=== PATIENT | female | born 1990 | race Caucasian/White ===

== ENCOUNTER 2017-06-07 19:28 | Emergency (ER) | payer SELFPAY ==
[~2017-06-07 19:28] MED LIST: ALLERGY MEDICINE
--- OUTSIDE RECORDS SUMMARY | 2017-06-07 19:36 | XMS REPORT ---
Author Author YAZAN ARCEO [facility] eClinicalWorks Address Unknown Phone Unavailable Care Team Providers Care Computer Aided Design Operator Name Role Phone YAZAN ARCEO Unavailable Allergies No Known Allergies Problems Problem Type Condition Code Onset Dates Condition Status Problem Referred otogenic pain, unspecified laterality H92.09 Active Problem Obesity, unspecified obesity severity, unspecified obesity type E66.9 Active Problem Counseling for control, oral contraceptives Z30.9 Active Problem Absence of menstruation N91.2 Active Medications Medication Code System Code Instructions Start Date End Date Status Dosage Diflucan [facility] [address]-97 150 MG Orally Once a day 2014 1 tablet Results No Known Results Summary Purpose eClinicalWorks Submission
--- OUTSIDE RECORDS SUMMARY | 2017-06-07 19:36 | XMS REPORT ---
Author Author BRANDON SANTILLAN [facility] eClinicalWorks Address Unknown Phone Unavailable Care Team Providers Care Net Front End Developer Name Role Phone BRANDON SANTILLAN CP Unavailable Allergies, Adverse Reactions, Alerts Substance Reaction Event Type N.K.D.A. Info Not Available Non Drug Allergy Problems Problem Type Condition Code Onset Dates Condition Status Problem Referred otogenic pain, unspecified laterality H92.09 Active Problem Obesity, unspecified obesity severity, unspecified obesity type E66.9 Active Problem Counseling for control, oral contraceptives Z30.9 Active Problem Absence of menstruation N91.2 Active Assessment Acute cystitis without hematuria N30.00 Active Medications Medication Code System Code Instructions Start Date End Date Status Dosage Pyridium [facility] [address]-35 200 MG Orally Three times a day 1 tablet after meals Bactrim DS [facility] [address]-39 800-160 MG Orally Twice a day 1 tablet Procedures Procedure Coding System Code Date Office Visit, Est Pt., Level 3 CPT-4 34252 August 29, 2015 Vital Signs Date/Time: August 29, 2015 Cardiac Monitoring Heart Rate 90 bpm Weight 183.9 lbs Height 62 in Blood Pressure Diastolic 76 mmHg Blood Pressure Systolic 108 mmHg Results No Known Results Summary Purpose eClinicalWorks Submission
--- OUTSIDE RECORDS SUMMARY | 2017-06-07 19:36 | XMS REPORT ---
Author Author LEROY CORRALES Organization [facility] Address [address] [place] [address] Care Team Providers Care Assistant City Attorney Name Role Phone LEROY CORRALES Unavailable PROBLEMS Type Condition ICD9-CM Code SUC26-FY Code Onset Dates Condition Status SNOMED Code Problem Obesity (BMI 30.0-34.9) E66.9 Active 353614756356510 Problem Amenorrhea N91.2 Active 22442736 ALLERGIES No Known Allergies SOCIAL HISTORY Never Assessed PLAN OF CARE Activity Details Follow Up prn Reason: VITAL SIGNS Height 62 in 2016-06-09 Weight 184.2 lbs 2016-06-09 Temperature 98.3 degrees Fahrenheit 2016-06-09 Heart Rate 80 bpm 2016-06-09 Respiratory Rate 20 2016-06-09 BMI 33.69 kg/m2 2016-06-09 Blood pressure systolic 116 mmHg 2016-06-09 Blood pressure diastolic 68 mmHg 2016-06-09 MEDICATIONS Medication Instructions Dosage Frequency Start Date End Date Duration Status Azithromycin 250 MG Orally Once a day 2 tablets on the first day, then 1 tablet daily for 4 days 24h June, June, 5 day(s) Active Depo-Provera 150 MG/ML Intramuscular every 3 months 1 ml Mar, 1 dose Active RESULTS Name Result Date Reference Range STREP A (IN HOUSE) 2016-06-09 STREP A positive Control + Lot # [id number] Exp date nov 26 PROCEDURES Procedure Date Ordered Result Body Site STREP A ASSAY W/OPTIC June 09, 2016 IMMUNIZATIONS No Known Immunizations MEDICAL (GENERAL) HISTORY Type Description Date Medical History Intestinal infection due to other organism Hospitalization History pneumonia as a child
--- OUTSIDE RECORDS SUMMARY | 2017-06-07 19:36 | XMS REPORT ---
Author Author MOTLEYAMIE VeraELE [facility] Address [address] [place] [address] Care Team Providers Care Order Puller Name Role Phone CRISTI MOTLEY Unavailable PROBLEMS Type Condition ICD9-CM Code CHE82-ZK Code Onset Dates Condition Status SNOMED Code Problem Vitamin D insufficiency E55.9 Active 741213755 Problem Obesity (BMI 30.0-34.9) E66.9 Active 863955736919102 Problem Amenorrhea N91.2 Active 33791921 Problem Seasonal allergic rhinitis, unspecified trigger J30.2 Active 644979539 Problem Moderate episode of recurrent major depressive disorder F33.1 Active 643746791 Problem Burning sensation of skin R20.8 Active 06136675 Problem Irregular menstrual cycle N92.6 Active 24358153 Problem Major depressive disorder, single episode, unspecified F32.9 Active 58271439 Problem Acute stress reaction F43.0 Active 21175757 ALLERGIES No Information ENCOUNTERS Encounter Location Date Diagnosis [place] [id number] [address] June, [place] [address] [address] May, Sore throat J02.9 and Seasonal allergic rhinitis, unspecified trigger J30.2 [facility] [address] [place] [id number] [place] [address] Mar, [facility] [address] [address] Mar, [facility] [address] [address] Mar, Sore throat J02.9 and Viral pharyngitis J02.9 [place] [address] [place] [address] Mar, 2017 Moderate episode of recurrent major depressive disorder F33.1 ; Other fatigue R53.83 and Oral contraception initial prescription Z30.011 [facility] [place] [address] [place] [id number] [place] [address] Jan, Acute non-recurrent frontal sinusitis J01.10 [place] [address] [place] [id number] [place] [address] Jan, Dysuria R30.0 ; Burning sensation of skin R20.8 and Acute stress reaction F43.0 [facility] [place] [address] [address] Jan, Other viral agents as the cause of diseases classified elsewhere B97.89 and Acute upper respiratory infection, unspecified J06.9 [place] [address] [place] [id number] [place] [address] Jan, Dysuria R30.0 and Acute cystitis with hematuria N30.01 [place] [address] [place] [id number] [place] [address] Nov, Encounter to establish care Z76.89 ; Obesity (BMI 30.0-34.9 ) E66.9 and Irregular menstrual cycle N92.6 [place] [address] [place] [id number] [place] [address] Nov, [place] [address] [place] [id number] [place] [address] Oct, Amenorrhea N91.2 [place] [address] [place] [id number] [place] [address] Oct, Vaginal discharge N89.8 ; Amenorrhea N91.2 and Obesity (BMI 30.0-34.9) E66.9 [place] [address] [place] [id number] [place] [address] Sep, Plantar fasciitis of left foot M72.2 [facility] [address] [place] [id number] [place] [address] June, Sore throat J02.9 and Strep pharyngitis J02.0 [facility] [address] [place] [id number] [place] [address] May, Sore throat J02.9 and Acute tonsillitis due to other specified organisms J03.80 [place] [address] [place] [id number] [place] [address] 14 Mar, 2016 Routine gynecological examination Z01.419 and Depot contraception Z30.40 [place] [address] [place] [id number] [place] [address]- 8[address] Sep, Recent urinary tract infection Z87.440 [place] [address] [place] [id number] [place] [address] Aug, Acute cystitis without hematuria N30.00 [place] [address] [place] [id number] [place] [address]- [address] Jul, Urinary tract infection N39.0 [place] [address] [place] [id number] [place] [address] June, Sinusitis, unspecified chronicity, unspecified location J32.9 [place] [address] [place] [id number] [place] [address] Mar, Allergic conjunctivitis H10.10 [place] [address] [place] [id number] [place] [address] Nov, Allergic rhinitis J30.9 [place] [address] [place] [id number] [place] [address]- [address] Nov, [place] [address] [place] [id number] [place] [address] Nov, Encounter for screening for malignant neoplasm of cervix Z12.4 ; Missed period N92.6 ; Vaginal discharge N89.8 ; Weight gain R63.5 and Acne L70.9 [place] [address] [place] [address] Aug, Nausea and vomiting 787.01 and UTI (urinary tract infection ) 599.0 [facility] [address] [id number] [place] [address] May, Eustachian tube dysfunction 381.81 [facility] [id number] [place] [address] May, [facility] [address] [facility] [id number], [place] [address] May, [facility] [address] [id number] [place] [address] Mar, [facility] [address] [id number] [place] [address] Mar, [facility] [address] [address] Oct, [facility] [address] [facility] [id number], [place] [address] Oct, [facility] [id number] [address] Sep, [facility] [address] [place] [id number] [place] [address] Sep, [facility] [address] [id number] [place] [address] June, [facility] [address] [facility] [id number], [place] [address] June, [facility] [address] [id number], [place] [address] Feb, [facility] [address] [facility] [id number], [place] [address] Feb, [facility] [address] [id number] [address] Feb, [facility] [place] [facility] [address] [id number] [place] [address] Feb, [facility] [place] [facility] [address] [id number] [place] [address] Feb, [facility] [place] [facility] [address] [id number] [place] [address] Feb, [facility] [place] [facility] [address] [id number] [place] [address]- [address] Feb, [facility] [place] [facility] [address] [id number] [place] [address] Feb, [facility] [place] [facility] [address] [id number] [place] [address]- [address] Feb, [facility] [place] [facility] [address] [id number] [place] [address] Dec, [facility] [place] [facility] [address] [id number] [place] [address] Dec, [facility] [place] [facility] [address] [id number] [place] [address] Sep, [facility] [place] [facility] [address] [id number] [place] [address]- [address] Sep, [facility] [place] [facility] [address] [id number] [place] [address]- [address] Sep, [facility] [place] [facility] [address] [id number] [place] [address]- [address] Sep, [facility] [place] [facility] [address] [id number] [place] [address]- [address] Sep, [facility] [place] [facility] [address] [id number] [place] [address]- [address] Apr, [facility] [place] [facility] [address] [id number] [place] [address]- [address] Apr, [facility] [place] [facility] [address] [id number] [place] [address]- [address] Dec, [facility] [address] [id number] [address] Dec, [facility] [address] [address] Jul, [facility] [address], [place] [address] Apr, [facility] [address] [place] [id number] [place] [address] 05 Apr, 2011 [facility] [address] [place] [address] Mar, [facility] [address] [place] [id number] [place] [address]- [address] Jan, [facility] [address] [place] [address]- [address] 14 Oct, 2010 [facility] [id number] [place] [address]- 47[address] Jan, [facility] [id number] [place] [address]- [address] Nov, [facility] [address], [place] [address]- [address] 13 Nov, 2009 [facility] [address] [address] 14 Sep, 2008 [facility] [address], [place] [address] Jul, IMMUNIZATIONS No Known Immunizations SOCIAL HISTORY Never Assessed REASON FOR VISIT Lab (walk-in) PLAN OF CARE VITAL SIGNS MEDICATIONS Unknown Medications RESULTS Name Result Date Reference Range PROLACTIN 2016-10-31 Prolactin 10.4 4.8-23.3 ESTRADIOL 2016-10-31 Estradiol 41.1 THYROID ANALYZER 2016-10-31 TSH 1.030 0.450-4.500 A1C 2016-10-31 Hemoglobin A1c 5.3 4.8-5.6 FSH, SERUM 2016-10-31 FSH 5.9 INSULIN LEVEL 2016-10-31 Insulin 11.3 2.6-24.9 CBC 2016-10-31 WBC 4.9 3.4-10.8 RBC 4.55 3.77-5.28 Hemoglobin 12.1 11.1-15.9 Hematocrit 37.8 34.0-46.6 MCV 83 79-97 MCH 26.6 26.6-33.0 MCHC 32.0 31.5-35.7 RDW 13.8 12.3-15.4 Platelets 334 150-379 Neutrophils 54 Lymphs 36 Monocytes 5 Eos 4 Basos 1 Neutrophils (Absolute) 2.6 1.4-7.0 Lymphs (Absolute) 1.8 0.7-3.1 Monocytes(Absolute) 0.2 0.1-0.9 Eos (Absolute) 0.2 0.0-0.4 Baso (Absolute) 0.1 0.0-0.2 Immature Granulocytes 0 Immature Grans (Abs) 0.0 0.0-0.1 LIPID PANEL 2016-10-31 Cholesterol, Total 148 100-199 Triglycerides 57 0-149 HDL Cholesterol 48 >39 VLDL Cholesterol Mil 11 5-40 LDL Cholesterol Calc 89 0-99 CMP 2016-10-31 Glucose, Serum 88 65-99 BUN 10 6-20 Creatinine, Serum 0.73 0.57-1.00 eGFR If NonAfricn Am 116 >59 eGFR If Africn Am 133 >59 BUN/Creatinine Ratio 14 9-23 Sodium, Serum 142 134-144 Potassium, Serum 4.7 3.5-5.2 Chloride, Serum 104 96-106 Carbon Dioxide, Total 23 18-29 Calcium, Serum 9.2 8.7-10.2 Protein, Total, Serum 6.9 6.0-8.5 Albumin, Serum 4.2 3.5-5.5 Globulin, Total 2.7 1.5-4.5 A/G Ratio 1.6 1.2-2.2 Bilirubin, Total 0.5 0.0-1.2 Alkaline Phosphatase, S 49 39-117 AST (SGOT) 17 0-40 ALT (SGPT) 17 0-32 PROCEDURES Procedure Date Ordered Result Body Site VENIPUNCT, ROUTINE* Oct 31, 2016 ASSAY OF PROLACTIN Oct 31, 2016 ASSAY OF ESTRADIOL Oct 31, 2016 LIPID PANEL Oct 31, 2016 COMPLETE CBC W/AUTO DIFF WBC Oct 31, 2016 COMPREHEN METABOLIC PANEL Oct 31, 2016 Hemoglobin Test Send Out 0 dollar Oct 31, 2016 ASSAY THYROID STIM HORMONE Oct 31, 2016 ASSAY OF INSULIN Oct 31, 2016 GONADOTROPIN (FSH) Oct 31, 2016 INSTRUCTIONS MEDICATIONS ADMINISTERED No Known Medications MEDICAL (GENERAL) HISTORY Type Description Date Medical History Intestinal infection due to other organism Hospitalization History pneumonia as a child
--- OUTSIDE RECORDS SUMMARY | 2017-06-07 19:36 | XMS REPORT ---
Author Author MARIEL CHERIE [facility] Address [address] [place] [address] Care Team Providers Care Social Organization Professor Name Role Phone TITO FLOYDY Unavailable PROBLEMS Type Condition ICD9-CM Code KOM61-TH Code Onset Dates Condition Status SNOMED Code Problem Vitamin D insufficiency E55.9 Active 603492840 Problem Obesity (BMI 30.0-34.9) E66.9 Active 198531488006441 Problem Amenorrhea N91.2 Active 36159489 Problem Seasonal allergic rhinitis, unspecified trigger J30.2 Active 132131453 Problem Moderate episode of recurrent major depressive disorder F33.1 Active 813307511 Problem Burning sensation of skin R20.8 Active 75989446 Problem Irregular menstrual cycle N92.6 Active 22624285 Problem Major depressive disorder, single episode, unspecified F32.9 Active 15424612 Problem Acute stress reaction F43.0 Active 42249468 ALLERGIES No Known Allergies ENCOUNTERS Encounter Location Date Diagnosis [place] [id number] [place] [address] June, [place] [address] [address] May, Sore throat J02.9 and Seasonal allergic rhinitis, unspecified trigger J30.2 [facility] [place] [id number] [place] [address] Mar, [place] [id number] [address] Mar, [facility] [place] [id number] [place] [address] 16289- 7555 Mar, Sore throat J02.9 and Viral pharyngitis J02.9 [place] [address] [id number] [place] [address] 05 Mar, 2017 Moderate episode of recurrent major depressive disorder F33.1 ; Other fatigue R53.83 and Oral contraception initial prescription Z30.011 [facility] [place] [id number] [place] [address] Jan, Acute non-recurrent frontal sinusitis J01.10 [place] [address] [address] Jan, Dysuria R30.0 ; Burning sensation of skin R20.8 and Acute stress reaction F43.0 [facility] [place] [address] [address] Jan, Other viral agents as the cause of diseases classified elsewhere B97.89 and Acute upper respiratory infection, unspecified J06.9 [place] [id number] [place] [address] 46697- [address]353 Jan, Dysuria R30.0 and Acute cystitis with hematuria N30.01 [place] [id number] [place] [address]54- 5[address] Nov, Encounter to establish care Z76.89 ; Obesity (BMI 30.0-34.9 ) E66.9 and Irregular menstrual cycle N92.6 [place] [id number] [place] [address] 98169- 97[address] Nov, [place] [address] [id number] [place] [address] 81120- [address]600 Oct, Amenorrhea N91.2 [place] [id number] [place] [address]- 8435 Oct, Vaginal discharge N89.8 ; Amenorrhea N91.2 and Obesity (BMI 30.0-34.9) E66.9 [place] [id number] [place] [address] 6[address]- [address] Sep, Plantar fasciitis of left foot M72.2 [facility] [address] [place] [address]46 [address] June, Sore throat J02.9 and Strep pharyngitis J02.0 [facility] [id number] [place] [address]57 [address] May, Sore throat J02.9 and Acute tonsillitis due to other specified organisms J03.80 [place] [address] [address]- [address] 14 Mar, 2016 Routine gynecological examination Z01.419 and Depot contraception Z30.40 [place] [address] [address]- [address] Sep, Recent urinary tract infection Z87.440 [place] [id number] [place] [address] 90741- 1733 Aug, Acute cystitis without hematuria N30.00 [place] [id number] [place] [address]89- 6970 Jul, Urinary tract infection N39.0 [place] [id number] [place] [address] 87832- 54[address] June, Sinusitis, unspecified chronicity, unspecified location J32.9 [place] [id number] [place] [address] 06238- 9053 Mar, Allergic conjunctivitis H10.10 [place] [id number] [place] [address] 04662- 3713 Nov, Allergic rhinitis J30.9 [place] [id number] [place] [address]23- 2872 Nov, [place] [id number] [place] [address] 75330- [address]117 Nov, Encounter for screening for malignant neoplasm of cervix Z12.4 ; Missed period N92.6 ; Vaginal discharge N89.8 ; Weight gain R63.5 and Acne L70.9 [place] [id number] [address] Aug, Nausea and vomiting 787.01 and UTI (urinary tract infection ) 599.0 [facility] [address] [id number] [place] [address] May, Eustachian tube dysfunction 381.81 [facility] [address] [id number] [place] [address] 0146 May, [facility] [address] [id number] [place] [address] 8566 May, [facility] [address] [id number] [place] [address]- 9256 Mar, [facility] [address] [id number] [place] [address]- 3[address] Mar, [facility] [address] [id number] [place] [address]- 7656 Oct, [facility] [address] [id number] [place] [address]- [address] Oct, [facility] [address] [id number] [place] [address]- 9926 Sep, [facility] [address] [id number] [place] [address]- 5604 Sep, [facility] [address] [id number] [place] [address]- 0016 June, [facility] [address] [id number], [place] [address] June, [facility] [address] [id number] [place] [address]- 8136 Feb, [facility] [address] [id number], [place] [address] 2546 Feb, [facility] [address] [id number], [place] [address] Feb, [facility] [address] [id number] [place] [address]- 2399 Feb, [facility] [address] [id number] [place] [address]- 1193 Feb, [facility] [place] [facility] [address] [id number] [place] [address]- 1345 Feb, [facility] [address] [id number] [place] [address]- 0302 Feb, [facility] [address] [id number] [place] [address]- 7892 Feb, [facility] [address] [id number] [place] [address]- 3606 Feb, [facility] [address] [id number] [place] [address]- 8930 Dec, [facility] [address] [id number] [place] [address]- 6122 Dec, [facility] [address] [id number] [place] [address]- 6357 Sep, [facility] [address] [id number] [place] [address]- 2153 Sep, [facility] [place] [facility] [address] [id number] [place] [address]- 3940 Sep, [facility] [place] [facility] [address] [id number] [place] [address]- 0472 Sep, [facility] [place] [facility] [address] [id number] [place] [address]- 0719 Sep, [facility] [place] [facility] [address] [id number] [place] [address]- 3914 Apr, [facility] [place] [facility] [address] [id number] [place] [address]- 7480 Apr, [facility] [place] [facility] [address] [id number], [place] [address]- 2546 Dec, [facility] [place] [address] [place] [address] Dec, [facility] [place] [address], [place] [address]- 35[address] Jul, [facility] [place] [address], [place] [address]- 25[address] Apr, [facility] [place] [address] [place] [address]- 0964 Apr, [facility] [place] [address] [address]- [address] Mar, [facility] [place] [address], [place] [address]- 0076 Jan, [facility] [place] [address], [place] [address] 49[address] Oct, [facility] [place] [address], [place] [address]- [address] Jan, [facility] [place] [address], [place] [address]- [address]32 Nov, [facility] [place] [address], [place] [address]- 0355 Nov, [facility] [place] [address] [id number] [address] Sep, [facility] [place] [address], [place] [address]- [address] Jul, IMMUNIZATIONS No Known Immunizations SOCIAL HISTORY Never Assessed REASON FOR VISIT Pain (acute) on left foot -- florian kilpatrick PLAN OF CARE Activity Details Follow Up prn Reason: VITAL SIGNS Height 62 in 2016-10-03 Weight 175.9 lbs 2016-10-03 Temperature 98.0 degrees Fahrenheit 2016-10-03 Heart Rate 78 bpm 2016-10-03 Respiratory Rate 18 2016-10-03 BMI 32.17 kg/m2 2016-10-03 Blood pressure systolic 120 mmHg 2016-10-03 Blood pressure diastolic 76 mmHg 2016-10-03 MEDICATIONS Medication Instructions Dosage Frequency Start Date End Date Duration Status Naprosyn 500 mg Orally every 12 hrs 1 tablet as needed 12h Sep, Active RESULTS No Results PROCEDURES No Known procedures INSTRUCTIONS MEDICATIONS ADMINISTERED No Known Medications MEDICAL (GENERAL) HISTORY Type Description Date Medical History Intestinal infection due to other organism Hospitalization History pneumonia as a child
--- OUTSIDE RECORDS SUMMARY | 2017-06-07 19:36 | XMS REPORT ---
Author Author YAZAN ARCEO [facility] eClinicalWorks Address Unknown Phone Unavailable Care Team Providers Care Agricultural Equipment Sales Manager Name Role Phone YAZAN ARCEO CP Unavailable Allergies, Adverse Reactions, Alerts Substance Reaction Event Type N.K.D.A. Info Not Available Non Drug Allergy Problems Problem Type Condition Code Onset Dates Condition Status Assessment Weight gain R63.5 Active Assessment Acne L70.9 Active Problem Referred otogenic pain, unspecified laterality H92.09 Active Problem Obesity, unspecified obesity severity, unspecified obesity type E66.9 Active Problem Counseling for control, oral contraceptives Z30.9 Active Assessment Missed period N92.6 Active Assessment Vaginal discharge N89.8 Active Problem Absence of menstruation N91.2 Active Assessment Encounter for screening for malignant neoplasm of cervix Z12.4 Active Medications No Known Medications Procedures Procedure Coding System Code Date SPECIMEN HANDLING CPT-4 32363 Nov 30, 2014 ASSAY THYROID STIM HORMONE CPT-4 85652 Nov 30, 2014 URINE TEST CPT-4 64350 Nov 30, 2014 VENIPUNCT, ROUTINE* CPT-4 42854 Nov 30, 2014 Office Visit, Est Pt., Level 3 CPT-4 74761 Nov 30, 2014 No Charge CPT-4 73406 Nov 30, 2014 ASSAY OF PROLACTIN CPT-4 55983 Nov 30, 2014 TRICHOMONAS VAGIN, DIR PROBE CPT-4 78992 Nov 30, 2014 CULTURE, BACTERIA, OTHER CPT-4 77020 Nov 30, 2014 Vital Signs Date/Time: Nov 30, 2014 Temperature 97.0 F Weight 177.8 lbs Height 62 in BMI 32.52 Index Blood Pressure Diastolic 70 mmHg Blood Pressure Systolic 100 mmHg Cardiac Monitoring Heart Rate 72 bpm Results Name Result Date Reference Range Unit Abnormality Flag TEST, SERUM (QUAL) TEST, URINE (IN HOUSE) PROLACTIN ----Prolactin 14.1 [id number] 4.8-23.3 ng/mL Summary Purpose eClinicalWorks Submission
--- OUTSIDE RECORDS SUMMARY | 2017-06-07 19:36 | XMS REPORT ---
Author Author MADNY MORENO [facility] eClinicalWorks Address Unknown Phone Unavailable Care Team Providers Care Change Management Lead Name Role Phone MANDY MORENO CP Unavailable Allergies, Adverse Reactions, Alerts Substance Reaction Event Type N.K.D.A. Info Not Available Non Drug Allergy Problems Problem Type Condition Code Onset Dates Condition Status Problem Referred otogenic pain, unspecified laterality H92.09 Active Problem Obesity, unspecified obesity severity, unspecified obesity type E66.9 Active Problem Counseling for control, oral contraceptives Z30.9 Active Problem Absence of menstruation N91.2 Active Assessment Allergic rhinitis J30.9 Active Medications Medication Code System Code Instructions Start Date End Date Status Dosage Day Time Cold/Flu Relief [facility] [address]-24 10-5-325 MG Orally every 4 hrs 2 capsules as needed Procedures Procedure Coding System Code Date DEPO MEDROL 80 MG/ML CPT-4 J1040 Dec 06, 2014 THER/PROPH/DIAG INJ, SC/IM CPT-4 92484 Dec 06, 2014 Office Visit, Est Pt., Level 3 CPT-4 24483 Dec 06, 2014 DEXAMETHASONE 4MG/ML (PER 1 MG) CPT-4 J1100 Dec 06, 2014 Vital Signs Date/Time: Dec 06, 2014 Temperature 98.2 F Weight 182.8 lbs Height 62 in BMI 33.43 Index Blood Pressure Diastolic 62 mmHg Blood Pressure Systolic 90 mmHg Cardiac Monitoring Heart Rate 64 bpm Results No Known Results Summary Purpose eClinicalWorks Submission
--- OUTSIDE RECORDS SUMMARY | 2017-06-07 19:36 | XMS REPORT ---
Author Author BRANDON SANTILLAN [facility] eClinicalWorks Address Unknown Phone Unavailable Care Team Providers Care Consultants Intern Name Role Phone BRANDON SANTILLAN CP Unavailable [...] Problem Absence of menstruation N91.2 Active Assessment Recent urinary tract infection Z87.440 Active Medications No Known Medications Procedures Procedure Coding System Code Date Office Visit, Est Pt., Level 2 CPT-4 05719 Sep 12, 2015 URINALYSIS, AUTO, W/O SCOPE CPT-4 06492 Sep 12, 2015 Vital Signs Date/Time: Sep 12, 2015 Cardiac Monitoring Heart Rate 80 bpm Weight 183.2 lbs Height 62 in BMI 33.50 Index Blood Pressure Diastolic 64 mmHg Blood Pressure Systolic 110 mmHg Results No Known Results Summary Purpose eClinicalWorks Submission
--- OUTSIDE RECORDS SUMMARY | 2017-06-07 19:36 | XMS REPORT ---
Author Author EFRAÍN MEDELLIN [facility] Address [address] [place] [address] Care Team Providers Care Sweatband Separator Name Role Phone VIGNESH EFRAÍN Unavailable PROBLEMS Type Condition ICD9-CM Code [id number] Code Onset Dates Condition Status SNOMED Code Problem Obesity (BMI 30.0-34.9) E66.9 Active 687100401869993 Problem Amenorrhea N91.2 Active 12962567 ALLERGIES No Known Allergies SOCIAL HISTORY Never Assessed PLAN OF CARE Activity Details Follow Up 1 Year, sooner prn Reason: VITAL SIGNS Height 62 in 2016-03-25 Weight 184.5 lbs 2016-03-25 Temperature 97.0 degrees Fahrenheit 2016-03-25 Heart Rate 76 bpm 2016-03-25 Respiratory Rate 18 2016-03-25 BMI 33.74 kg/m2 2016-03-25 Blood pressure systolic 120 mmHg 2016-03-25 Blood pressure diastolic 80 mmHg 2016-03-25 MEDICATIONS Medication Instructions Dosage Frequency Start Date End Date Duration Status Depo-Provera 150 MG/ML Intramuscular every 3 months 1 ml Mar, 1 dose Active RESULTS Name Result Date Reference Range TEST, URINE (IN HOUSE) 2016-03-25 RESULTS negative Lot # [id number] Control + Exp date 05/2017 TRICHOMONAS (IN HOUSE) 2016-03-25 TRICHOMONAS negative Control + Lot # [id number] Exp date 03/2017 BACTERIAL VAGINOSIS (IN HOUSE) 2016-03-25 RESULTS negative Control + Lot # [id number] Exp date 10/2016 CULTURE, GENITAL 2016-03-25 Genital Culture, Routine Final report Result 1 PDF Report 2016-03-25 PDF Report1 LCLS PAP TEST, HPV IF ASCUS 2016-03-25 DIAGNOSIS: Specimen adequacy: Clinician provided ICD10: Performed by: . . Note: . GC/CHLAM PROBE (STATE) 2016-03-25 CHLAMYDIA GC PROCEDURES Procedure Date Ordered Result Body Site URINE TEST Mar 25, 2016 SPECIMEN HANDLING Mar 25, 2016 INJ MDRXYPRGESTRON CNTRACPT 150 MG Mar 25, 2016 THER/PROPH/DIAG INJ, SC/IM Mar 25, 2016 CULTURE, BACTERIA, OTHER Mar 25, 2016 TRICHOMONAS ASSAY W/OPTIC Mar 25, 2016 FRANK VAG, DNA, DIR PROBE Mar 25, 2016 No Charge Mar 25, 2016 IMMUNIZATIONS Vaccine Route Administration Date Status MEDRXYPROGESTERONE ACETATE IM Intramuscular Mar 25, 2016 Administered MEDICAL (GENERAL) HISTORY Type Description Date Medical History Intestinal infection due to other organism Hospitalization History pneumonia as a child
--- OUTSIDE RECORDS SUMMARY | 2017-06-07 19:37 | XMS REPORT | Continuity of Care Document ---
Author Author [facility] Address Unknown Phone Unavailable Allergies There is no data. Medications There is no data. Problems Date Dx Coded Attending Type Code Diagnosis Diagnosed By 07/20/2008 626.4 irregular length of menstrual periods 07/20/2008 V25.41 visit for: contraceptive surveillance pill 07/20/2008 626.4 irregular length of menstrual periods 07/20/2008 V25.41 visit for: contraceptive surveillance pill 07/20/2008 626.4 irregular length of menstrual periods 07/20/2008 V25.41 visit for: contraceptive surveillance pill 07/20/2008 626.4 irregular length of menstrual periods 07/20/2008 V25.41 visit for: contraceptive surveillance pill 07/20/2008 JB HANEY APRN 626.4 irregular length of menstrual periods 07/20/2008 JB HANEY APRN V25.41 visit for: contraceptive surveillance pill 07/20/2008 STEPHANIE MEIER APRN 626.4 irregular length of menstrual periods 07/20/2008 STEPHANIE MEIER APRN V25.41 visit for: contraceptive surveillance pill 07/20/2008 DEEPTI TARANGO APRN 626.4 irregular length of menstrual periods 07/20/2008 DEEPTI TARANGO APRN V25.41 visit for: contraceptive surveillance pill 07/20/2008 MANDY MORENO APRN 626.4 irregular length of menstrual periods 07/20/2008 MANDY MORENO APRN R V25.41 visit for: contraceptive surveillance pill 07/20/2008 MARGIE PAVON DO 626.4 irregular length of menstrual periods 07/20/2008 MARGIE PAVON DO V25.41 visit for: contraceptive surveillance pill 09/22/2008 V20.2 Preventive Medicine Establ. Patient Checkup Adolescent 12-17 09/22/2008 V20.2 Preventive Medicine Establ. Patient Checkup Adolescent 12-17 09/22/2008 V20.2 Preventive Medicine Establ. Patient Checkup Adolescent 12-17 09/22/2008 V20.2 Preventive Medicine Establ. Patient Checkup Adolescent 12-17 09/22/2008 JB HANEY APRN V20.2 Preventive Medicine Establ. Patient Checkup Adolescent 12-17 09/22/2008 STEPHANIE MEIER APRN V20.2 Preventive Medicine Establ. Patient Checkup Adolescent 12-17 09/22/2008 DEEPTI TARANGO APRN V20.2 Preventive Medicine Establ. Patient Checkup Adolescent 12-17 09/22/2008 MANDY MORENO APRN V20.2 Preventive Medicine Establ. Patient Checkup Adolescent 12-17 09/22/2008 MARGIE PAVON DO V20.2 Preventive Medicine Establ. Patient Checkup Adolescent 12-08/01/2009 477.9 RHINITIS 08/01/2009 692.71 SUNBURN 08/01/2009 V25.40 CONTRACEPTIVE SURVEILLANCE UNSPECIFIED 08/01/2009 V72.42 TEST POSITIVE RESULT 08/01/2009 V74.1 SPECIAL SCREENING EXAMINATION FOR PULMONARY TUBERCULOSIS 08/01/2009 477.9 RHINITIS 08/01/2009 692.71 SUNBURN 08/01/2009 V25.40 CONTRACEPTIVE SURVEILLANCE UNSPECIFIED 08/01/2009 V72.42 TEST POSITIVE RESULT 08/01/2009 V74.1 SPECIAL SCREENING EXAMINATION FOR PULMONARY TUBERCULOSIS 08/01/2009 477.9 RHINITIS 08/01/2009 692.71 SUNBURN 08/01/2009 V25.40 CONTRACEPTIVE SURVEILLANCE UNSPECIFIED 08/01/2009 V72.42 TEST POSITIVE RESULT 08/01/2009 V74.1 SPECIAL SCREENING EXAMINATION FOR PULMONARY TUBERCULOSIS 08/01/2009 477.9 RHINITIS 08/01/2009 692.71 SUNBURN 08/01/2009 V25.40 CONTRACEPTIVE SURVEILLANCE UNSPECIFIED 08/01/2009 V72.42 TEST POSITIVE RESULT 08/01/2009 V74.1 SPECIAL SCREENING EXAMINATION FOR PULMONARY TUBERCULOSIS 08/01/2009 JB HANEY APRN 477.9 RHINITIS 08/01/2009 JB HANEY APRN 692.71 SUNBURN 08/01/2009 JB HANEY APRN V25.40 CONTRACEPTIVE SURVEILLANCE UNSPECIFIED 08/01/2009 JB HANEY APRN V72.42 TEST POSITIVE RESULT 08/01/2009 JB HANEY APRN V74.1 SPECIAL SCREENING EXAMINATION FOR PULMONARY TUBERCULOSIS 08/01/2009 SHANNA MEIER APRNIDI A 477.9 RHINITIS 08/01/2009 HARDEEP LIMONSTEPHANIE A 692.71 SUNBURN 08/01/2009 SHANNA MEIER APRNIDI A V25.40 CONTRACEPTIVE SURVEILLANCE UNSPECIFIED 08/01/2009 HARDEEP LIMON STEPHANIE A V72.42 TEST POSITIVE RESULT 08/01/2009 SHANNA MEIER APRNIDI A V74.1 SPECIAL SCREENING EXAMINATION FOR PULMONARY TUBERCULOSIS 08/01/2009 LIEN TARANGO APRNCY N 477.9 RHINITIS 08/01/2009 POPELIEN STARR APRNCY N 692.71 SUNBURN 08/01/2009 LIEN TARANGO APRNCY N V25.40 CONTRACEPTIVE SURVEILLANCE UNSPECIFIED 08/01/2009 LIEN TARANGO APRNCY N V72.42 TEST POSITIVE RESULT 08/01/2009 DEEPTI TARANGO APRN N V74.1 SPECIAL SCREENING EXAMINATION FOR PULMONARY TUBERCULOSIS 08/01/2009 JOSH FISHING BOAT MATE, MANDY R 477.9 RHINITIS 08/01/2009 JOSH FISHING BOAT MATE, MANDY R 692.71 SUNBURN 08/01/2009 JOSH FISHING BOAT MATEASHOK SpencerMANDY R V25.40 CONTRACEPTIVE SURVEILLANCE UNSPECIFIED 08/01/2009 JOSH FISHING BOAT MATEASHOK SpencerMANDY R V72.42 TEST POSITIVE RESULT 08/01/2009 MORENO FISHING BOAT MATEASHOK SpencerMANDY R V74.1 SPECIAL SCREENING EXAMINATION FOR PULMONARY TUBERCULOSIS 08/01/2009 PAVON DO, MARGIE K 477.9 RHINITIS 08/01/2009 PAVON DO, MARGIE K 692.71 SUNBURN 08/01/2009 PAVON DO, MARGIE K V25.40 CONTRACEPTIVE SURVEILLANCE UNSPECIFIED 08/01/2009 PAVON DO, MARGIE K V72.42 TEST POSITIVE RESULT 08/01/2009 PAVON DO, AMRGIE K V74.1 SPECIAL SCREENING EXAMINATION FOR PULMONARY TUBERCULOSIS 08/15/2009 780.52 INSOMNIA UNSPECIFIED 08/15/2009 786.2 COUGH 08/15/2009 780.52 INSOMNIA UNSPECIFIED 08/15/2009 786.2 COUGH 08/15/2009 780.52 INSOMNIA UNSPECIFIED 08/15/2009 786.2 COUGH 08/15/2009 780.52 INSOMNIA UNSPECIFIED 08/15/2009 786.2 COUGH 08/15/2009 JB HANEY APRN 780.52 INSOMNIA UNSPECIFIED 08/15/2009 JB HANEY APRN 786.2 COUGH 08/15/2009 HARDEEPSHANNA Spencer APRNIDI A 780.52 INSOMNIA UNSPECIFIED 08/15/2009 HARDEEPSHANNA Spencer APRNIDI A 786.2 COUGH 08/15/2009 TOSHIA SHAFERDEEPTI THRASHER APRN N 780.52 INSOMNIA UNSPECIFIED 08/15/2009 TOSHIA SHAFERDEEPTI THRASHER APRN N 786.2 COUGH 08/15/2009 ASHOK MORENO APRNRICIA R 780.52 INSOMNIA UNSPECIFIED 08/15/2009 JOSH LIMON MANDY R 786.2 COUGH 08/15/2009 PAVON DO, MARGIE K 780.52 INSOMNIA UNSPECIFIED 08/15/2009 PAVON DO, MARGIE K 786.2 COUGH 08/29/2009 780.50 SLEEP DISTURBANCE, UNSPECIFIED 08/29/2009 780.50 SLEEP DISTURBANCE, UNSPECIFIED 08/29/2009 780.50 SLEEP DISTURBANCE, UNSPECIFIED 08/29/2009 780.50 SLEEP DISTURBANCE, UNSPECIFIED 08/29/2009 JB HANEY APRN 780.50 SLEEP DISTURBANCE, UNSPECIFIED 08/29/2009 HARDEEPSTEPHANIE Spencer APRN A 780.50 SLEEP DISTURBANCE, UNSPECIFIED 08/29/2009 TOSIHA SHAFERPRICE FISHING BOAT MATEDEEPTI Spencer N 780.50 SLEEP DISTURBANCE, UNSPECIFIED 08/29/2009 ASHOK MORENO APRNRICIA R 780.50 SLEEP DISTURBANCE, UNSPECIFIED 08/29/2009 PAVON DO, MARGIE K 780.50 SLEEP DISTURBANCE, UNSPECIFIED 11/21/2009 465.9 UPPER RESPIRATORY INFECTION 11/21/2009 465.9 UPPER RESPIRATORY INFECTION 11/21/2009 465.9 UPPER RESPIRATORY INFECTION 11/21/2009 465.9 UPPER RESPIRATORY INFECTION 11/21/2009 JB HANEY APRN 465.9 UPPER RESPIRATORY INFECTION 11/21/2009 STEPHANIE MEIER APRN A 465.9 UPPER RESPIRATORY INFECTION 11/21/2009 TOSHIA SHAFERDEEPTI THRASHER APRN N 465.9 UPPER RESPIRATORY INFECTION 11/21/2009 ASHOK MORENO APRNRICIA R 465.9 UPPER RESPIRATORY INFECTION 11/21/2009 PAVON DO, MARGIE K 465.9 UPPER RESPIRATORY INFECTION 01/29/2010 V25.49 SURVEILLANCE OF OTHER CONTRACEPTIVE METHOD 01/29/2010 V25.49 SURVEILLANCE OF OTHER CONTRACEPTIVE METHOD 01/29/2010 V25.49 SURVEILLANCE OF OTHER CONTRACEPTIVE METHOD 01/29/2010 V25.49 SURVEILLANCE OF OTHER CONTRACEPTIVE METHOD 01/29/2010 JB HANEY APRN V25.49 SURVEILLANCE OF OTHER CONTRACEPTIVE METHOD 01/29/2010 STEPHANIE MEIER APRN A V25.49 SURVEILLANCE OF OTHER CONTRACEPTIVE METHOD 01/29/2010 DEEPTI TARANGO APRN N V25.49 SURVEILLANCE OF OTHER CONTRACEPTIVE METHOD 01/29/2010 MANDY MORENO APRN V25.49 SURVEILLANCE OF OTHER CONTRACEPTIVE METHOD 01/29/2010 MARGIE PAVON DO V25.49 SURVEILLANCE OF OTHER CONTRACEPTIVE METHOD 10/23/2010 V25.09 CONTRACEPTIVE COUNSELING 10/23/2010 V65.45 STD COUNSELING 10/23/2010 V72.31 BRICK SORTER EXAM, ROUTINE 10/23/2010 V74.5 STD SCREEN 10/23/2010 V25.09 CONTRACEPTIVE COUNSELING 10/23/2010 V65.45 STD COUNSELING 10/23/2010 V72.31 BRICK SORTER EXAM, ROUTINE 10/23/2010 V74.5 STD SCREEN 10/23/2010 V25.09 CONTRACEPTIVE COUNSELING 10/23/2010 V65.45 STD COUNSELING 10/23/2010 V72.31 BRICK SORTER EXAM, ROUTINE 10/23/2010 V74.5 STD SCREEN 10/23/2010 V25.09 CONTRACEPTIVE COUNSELING 10/23/2010 V65.45 STD COUNSELING 10/23/2010 V72.31 BRICK SORTER EXAM, ROUTINE 10/23/2010 V74.5 STD SCREEN 10/23/2010 JB HANEY APRN V25.09 CONTRACEPTIVE COUNSELING 10/23/2010 JB HANEY APRN V65.45 STD COUNSELING 10/23/2010 JB HANEY APRN V72.31 BRICK SORTER EXAM, ROUTINE 10/23/2010 JB HANEY APRN V74.5 STD SCREEN 10/23/2010 STEPHANIE MEIER APRN A V25.09 CONTRACEPTIVE COUNSELING 10/23/2010 SHANNA MEIER APRNIDI A V65.45 STD COUNSELING 10/23/2010 HARDEEP LIMON STEPHANIE A V72.31 BRICK SORTER EXAM, ROUTINE 10/23/2010 HARDEEP LIMON STPEHANIE A V74.5 STD SCREEN 10/23/2010 POPE CASHERO FISHING BOAT MATE, DEEPTI N V25.09 CONTRACEPTIVE COUNSELING 10/23/2010 TOSHIA STEINER APRN, DEEPTI N V65.45 STD COUNSELING 10/23/2010 TOSHIA STEINER APRN, DEEPTI N V72.31 BRICK SORTER EXAM, ROUTINE 10/23/2010 TOSHIA STEINER APRN, DEEPTI N V74.5 STD SCREEN 10/23/2010 JOSH FISHING BOAT MATE, MANDY R V25.09 CONTRACEPTIVE COUNSELING 10/23/2010 JOSH THAKKARN, MANDY R V65.45 STD COUNSELING 10/23/2010 JOSH THAKKARN, MANDY R V72.31 BRICK SORTER EXAM, ROUTINE 10/23/2010 JOSH THAKKARN, MANDY R V74.5 STD SCREEN 10/23/2010 PAVON DO MARGIE K V25.09 CONTRACEPTIVE COUNSELING 10/23/2010 PAVON DO MARGIE K V65.45 STD COUNSELING 10/23/2010 PAVON DO, MARGIE K V72.31 BRICK SORTER EXAM, ROUTINE 10/23/2010 PAVON DO MARGIE K V74.5 STD SCREEN 04/28/2012 008.8 GASTROENTERITIS, VIRAL 04/28/2012 V06.1 TDAP DX 04/28/2012 008.8 GASTROENTERITIS, VIRAL 04/28/2012 V06.1 TDAP DX 04/28/2012 008.8 GASTROENTERITIS, VIRAL 04/28/2012 V06.1 TDAP DX 04/28/2012 JB HANEY APRN 008.8 GASTROENTERITIS, VIRAL 04/28/2012 JB HANEY APRN V06.1 TDAP DX 04/28/2012 STEPHANIE MEIER APRN A 008.8 GASTROENTERITIS, VIRAL 04/28/2012 HARDEEP THAKKARN STEPHANIE A V06.1 TDAP DX 04/28/2012 TOSHIA STEINER APRN, DEEPTI N 008.8 GASTROENTERITIS, VIRAL 04/28/2012 TOSHIA STEINER FISHING BOAT MATE, DEEPTI N V06.1 TDAP DX 04/28/2012 JOSH FISHING BOAT MATE, MANDY R 008.8 GASTROENTERITIS, VIRAL 04/28/2012 JOSH FISHING BOAT MATE, MANDY R V06.1 TDAP DX 04/28/2012 PAVON DO MARGIE K 008.8 GASTROENTERITIS, VIRAL 04/28/2012 PAVON DO MARGIE K V06.1 TDAP DX 09/21/2012 625.8 OTHER SPECIFIED SYMPTOMS ASSOCIATED WITH FEMALE GENITAL ORGANS 09/21/2012 V25.01 CONTRACEPTION - ORAL CONTRACEPTION 09/21/2012 625.8 OTHER SPECIFIED SYMPTOMS ASSOCIATED WITH FEMALE GENITAL ORGANS 09/21/2012 V25.01 CONTRACEPTION - ORAL CONTRACEPTION 09/21/2012 LYNDON THAKKARJB Spencer 625.8 OTHER SPECIFIED SYMPTOMS ASSOCIATED WITH FEMALE GENITAL ORGANS 09/21/2012 LYNDON THAKKARJB Spencer V25.01 CONTRACEPTION - ORAL CONTRACEPTION 09/21/2012 SHANNA MEIER APRNIDI A 625.8 OTHER SPECIFIED SYMPTOMS ASSOCIATED WITH FEMALE GENITAL ORGANS 09/21/2012 SHANNA MEIER APRNIDI A V25.01 CONTRACEPTION - ORAL CONTRACEPTION 09/21/2012 TOSHIA STEINER APRDEEPTI Spencer N 625.8 OTHER SPECIFIED SYMPTOMS ASSOCIATED WITH FEMALE GENITAL ORGANS 09/21/2012 TOSHIA STEINER APRDEEPTI Spencer N V25.01 CONTRACEPTION - ORAL CONTRACEPTION 09/21/2012 MANDY MORENO APRN R 625.8 OTHER SPECIFIED SYMPTOMS ASSOCIATED WITH FEMALE GENITAL ORGANS 09/21/2012 MANDY MORENO APRN R V25.01 CONTRACEPTION - ORAL CONTRACEPTION 09/21/2012 PAVON DO, MARGIE K 625.8 OTHER SPECIFIED SYMPTOMS ASSOCIATED WITH FEMALE GENITAL ORGANS 09/21/2012 PAVON DO, MARGIE K V25.01 CONTRACEPTION - ORAL CONTRACEPTION 02/23/2013 SHANNA MEIER APRNIDI A 278.00 OBESITY 02/23/2013 SHANNA MEIER APRNIDI A 626.0 AMENORRHEA 02/23/2013 TOSHIA STEINER APRDEEPTI Spencer N 278.00 OBESITY 02/23/2013 TOSHIA STEINER APRDEEPTI Spencer N 626.0 AMENORRHEA 02/23/2013 STEPHANIE MORENO APRNIA R 278.00 OBESITY 02/23/2013 STEPHANIE MORENO APRNIA R 626.0 AMENORRHEA 02/23/2013 PAVON DO, MARGIE K 278.00 OBESITY 02/23/2013 PAVON DO, MARGIE K 626.0 AMENORRHEA 06/21/2013 DEEPTI TARANGO APRN N 388.72 REFERRED OTOGENIC PAIN 06/21/2013 DEEPTI TARANGO APRN N 478.19 OTHER DISEASES OF NASAL CAVITY AND SINUSES 06/21/2013 DEEPTI TARANGO APRN N 784.1 THROAT PAIN 06/21/2013 MANDY MORENO APRN R 388.72 REFERRED OTOGENIC PAIN 06/21/2013 JOSH THAKKARNASHOKMANDY R 478.19 OTHER DISEASES OF NASAL CAVITY AND SINUSES 06/21/2013 MORENO ASHOK LIMONRICIA R 784.1 THROAT PAIN 06/21/2013 MARGIE PAVON DO 388.72 REFERRED OTOGENIC PAIN 06/21/2013 MARGIE PAVON DO 478.19 OTHER DISEASES OF NASAL CAVITY AND SINUSES 06/21/2013 MARGIE PAVON DO 784.1 THROAT PAIN 04/06/2014 MARGIE PAVON DO 692.4 CONTACT DERMATITIS AND OTHER ECZEMA DUE TO OTHER CHEMICAL PRODUCTS 05/11/2014 MARGIE PAVON DO V72.41 TEST NEGATIVE RESULT Procedures Code [place] [address] UA LONG DIP 09/21/2012 96027 URINE TEST (IN- HOUSE) 09/21/2012 74980 TRICHOMONAS (IN-HOUSE) 09/21/2012 52470 CULTURE UROGENITAL 09/23/2012 47118 CULTURE URINE 09/23/2012 96249 GC/CHLAM PROBE ([facility]) 09/23/2012 30027 HERPES SIMPLEX CULTURE 09/23/2012 18365 TEST, URINE (IN- HOUSE) 02/23/2013 45166 ROUTINE VENIPUNCTURE 02/24/2013 HCGQULRLX HCG QUALITATIVE W/ REFLEX 02/24/2013 07401 LIPID PANEL 02/24/2013 63804 A1C (RML) 02/24/2013 17544 TSH 02/24/2013 58064 INSULIN LEVEL 02/25/2013 72967 TESTOSTERONE TOTAL-WOMEN & CHILDREN 02/27/2013 HERPSM1,2 HERPES SIMPLEX 1 AND 2, IGM, IGG 02/28/2013 54585 OXIMETRY 09/21/2013 59770 TEST, URINE (IN- HOUSE) 05/11/2014 Results Test Result Range Pap Lb, rfx HPV ASCU - 03/25/16 14:58 DIAGNOSIS: Comment Specimen adequacy: Comment Clinician provided ICD10: Comment Performed by: Comment . . Note: Comment . Comment Genital Culture, Routine - 03/25/16 14:58 Genital Culture, Routine Note CULTURE, GENITAL - 10/30/16 16:23 Genital Culture, Routine Final report NRG Result 1 NRG Genital Culture, Routine - 10/30/16 16:23 Genital Culture, Routine Note CBC With Differential/Platelet - 10/31/16 13:09 WBC 4.9 x10E3/uL 3.4-10.8 RBC 4.55 x10E6/uL 3.77-5.28 Hemoglobin 12.1 g/dL 11.1-15.9 Hematocrit 37.8 % 34.0-46.6 MCV 83 fL 79-97 MCH 26.6 pg 26.6-33.0 MCHC 32.0 g/dL 31.5-35.7 RDW 13.8 % 12.3-15.4 Platelets 334 x10E3/uL 150-379 Neutrophils 54 % Lymphs 36 % Monocytes 5 % Eos 4 % Basos 1 % Neutrophils (Absolute) 2.6 x10E3/uL 1.4-7.0 Lymphs (Absolute) 1.8 x10E3/uL 0.7-3.1 Monocytes(Absolute) 0.2 x10E3/uL 0.1-0.9 Eos (Absolute) 0.2 x10E3/uL 0.0-0.4 Baso (Absolute) 0.1 x10E3/uL 0.0-0.2 Immature Granulocytes 0 % Immature Grans (Abs) 0.0 x10E3/uL 0.0-0.1 Comp. Metabolic Panel (14) - 10/31/16 13:09 Glucose, Serum 88 mg/dL 65-99 BUN 10 mg/dL 6-20 Creatinine, Serum 0.73 mg/dL 0.57-1.00 eGFR If NonAfricn Am 116 mL/min/1.73 >59 eGFR If Africn Am 133 mL/min/1.73 >59 BUN/Creatinine Ratio 14 9-23 Sodium, Serum 142 mmol/L 134-144 Potassium, Serum 4.7 mmol/L 3.5-5.2 Chloride, Serum 104 mmol/L 96-106 Carbon Dioxide, Total 23 mmol/L 18-29 Calcium, Serum 9.2 mg/dL 8.7-10.2 Protein, Total, Serum 6.9 g/dL 6.0-8.5 Albumin, Serum 4.2 g/dL 3.5-5.5 Globulin, Total 2.7 g/dL 1.5-4.5 A/G Ratio 1.6 1.2-2.2 Bilirubin, Total 0.5 mg/dL 0.0-1.2 Alkaline Phosphatase, S 49 IU/L 39-117 AST (SGOT) 17 IU/L 0-40 ALT (SGPT) 17 IU/L 0-32 Lipid Panel - 10/31/16 13:09 Cholesterol, Total 148 mg/dL 100-199 Triglycerides 57 mg/dL 0-149 HDL Cholesterol 48 mg/dL >39 VLDL Cholesterol Mil 11 mg/dL 5-40 LDL Cholesterol Calc 89 mg/dL 0-99 Hemoglobin A1c - 10/31/16 13:09 Hemoglobin A1c 5.3 % 4.8-5.6 FSH, Serum - 10/31/16 13:09 FSH 5.9 mIU/mL Prolactin - 10/31/16 13:09 Prolactin 10.4 ng/mL 4.8-23.3 Estradiol - 10/31/16 13:09 Estradiol 41.1 pg/mL Thyroid [place] Profile - 10/31/16 13:09 TSH 1.030 uIU/mL 0.450-4.500 Insulin - 10/31/16 13:09 Insulin 11.3 uIU/mL 2.6-24.9 CBC - 10/31/16 13:09 WBC 4.9 x10E3/uL 3.4-10.8 RBC 4.55 x10E6/uL 3.77-5.28 Hemoglobin 12.1 g/dL 11.1-15.9 Hematocrit 37.8 % 34.0-46.6 MCV 83 fL 79-97 MCH 26.6 pg 26.6-33.0 MCHC 32.0 g/dL 31.5-35.7 RDW 13.8 % 12.3-15.4 Platelets 334 x10E3/uL 150-379 Neutrophils 54 % NRG Lymphs 36 % NRG Monocytes 5 % NRG Eos 4 % NRG Basos 1 % NRG Neutrophils (Absolute) 2.6 x10E3/uL 1.4-7.0 Lymphs (Absolute) 1.8 x10E3/uL 0.7-3.1 Monocytes(Absolute) 0.2 x10E3/uL 0.1-0.9 Eos (Absolute) 0.2 x10E3/uL 0.0-0.4 Baso (Absolute) 0.1 x10E3/uL 0.0-0.2 Immature Granulocytes 0 % NRG Immature Grans (Abs) 0.0 x10E3/uL 0.0-0.1 LIPID PANEL - 10/31/16 13:09 Cholesterol, Total 148 mg/dL 100-199 Triglycerides 57 mg/dL 0-149 HDL Cholesterol 48 mg/dL >39 VLDL Cholesterol Mil 11 mg/dL 5-40 LDL Cholesterol Calc 89 mg/dL 0-99 CMP - 10/31/16 13:09 Glucose, Serum 88 mg/dL 65-99 BUN 10 mg/dL 6-20 Creatinine, Serum 0.73 mg/dL 0.57-1.00 eGFR If NonAfricn Am 116 mL/min/1.73 >59 eGFR If Africn Am 133 mL/min/1.73 >59 BUN/Creatinine Ratio 14 9-23 Sodium, Serum 142 mmol/L 134-144 Potassium, Serum 4.7 mmol/L 3.5-5.2 Chloride, Serum 104 mmol/L 96-106 Carbon Dioxide, Total 23 mmol/L 18-29 Calcium, Serum 9.2 mg/dL 8.7-10.2 Protein, Total, Serum 6.9 g/dL 6.0-8.5 Albumin, Serum 4.2 g/dL 3.5-5.5 Globulin, Total 2.7 g/dL 1.5-4.5 A/G Ratio 1.6 1.2-2.2 Bilirubin, Total 0.5 mg/dL 0.0-1.2 Alkaline Phosphatase, S 49 IU/L 39-117 AST (SGOT) 17 IU/L 0-40 ALT (SGPT) 17 IU/L 0-32 CULTURE, URINE - 01/15/17 10:23 CULTURE, URINE, ROUTINE SEE NOTE NRG VITAMIN B12 - 03/16/17 12:25 VITAMIN B12 415 pg/mL 200-1100 VITAMIN D, 25-H - 03/16/17 12:25 VITAMIN D,25-OH,TOTAL,IA 23 ng/mL 30-100 CULTURE, THROAT - 03/20/17 12:22 CULTURE, THROAT SEE NOTE NRG Encounters ACCT No. Visit Date/Time Discharge Status Pt. Type Provider Facility Loc./Unit Complaint [id number] 05/11/2014 13:31:00 05/11/2014 23:59:59 CLS Outpatient MARGIE PAVON DO [id number] 09/21/2013 14:48:00 09/21/2013 23:59:59 CLS Outpatient MANDY MORENO APRN [id number] 06/21/2013 10:22:00 06/21/2013 23:59:59 CLS Outpatient DEEPTI TARANGO APRN [id number] 02/24/2013 08:55:00 02/24/2013 23:59:59 CLS Outpatient STEPHANIE MEIER APRN [id number] 12/18/2012 10:41:00 12/18/2012 23:59:59 CLS Outpatient JB HANEY APRN [id number] 04/28/2012 14:32:00 04/28/2012 23:59:59 CLS Outpatient [id number] 07/28/2011 14:11:00 07/28/2011 23:59:59 CLS Outpatient [id number] 10/04/2012 13:03:00 Document Registration [id number] 09/21/2012 13:42:00 Document Registration [id number] 03/27/2016 14:10:00 Document Registration [id number] 03/28/2016 09:08:00 Document Registration [id number] 11/03/2016 16:07:00 Document Registration [id number] 05/18/2017 10:30:00 05/18/2017 23:59:59 CLS Outpatient T[facility]U CRISTI [facility] [id number] 03/20/2017 11:40:00 Document Registration [id number] 03/16/2017 11:00:00 Document Registration [id number] 01/15/2017 09:40:00 Document Registration [id number] 10/31/2016 13:00:00 Document Registration [id number] 10/30/2016 15:20:00 Document Registration [id number] 11/02/2016 14:06:00 Document Registration
[2017-06-07] MEDS ORDERED: NAPR-1071 PO (23:02)
[2017-06-07] MEDS ORDERED: AMOX500C2 PO (23:02)
== END 2017-06-07 20:35 | disposition left against medical advice (07) ==
LOC: EDUNIT# 19:28 → ER 19:31
DX: K08.89 Other specified disorders of teeth and supporting structures (principal)

== ENCOUNTER 2017-06-07 21:26 | Emergency (ER) | payer SELFPAY ==
[~2017-06-07] VITALS: Ht 157.5 cm; Wt 81.6 kg
--- OUTSIDE RECORDS SUMMARY | 2017-06-07 21:33 | XMS REPORT | Continuity of Care Document ---
Author Author [facility] Address Unknown Phone Unavailable Allergies There [...] LIEN TARANGO APRNCY N 477.9 RHINITIS 08/01/2009 PPOELIEN STARR APRNCY N 692.71 SUNBURN 08/01/2009 LIEN TARANGO APRNCY N V25.40 CONTRACEPTIVE SURVEILLANCE UNSPECIFIED 08/01/2009 LIEN TARANGO APRNCY N V72.42 TEST POSITIVE RESULT 08/01/2009 DEEPTI TARANGO APRN N V74.1 SPECIAL SCREENING EXAMINATION FOR PULMONARY TUBERCULOSIS 08/01/2009 JOSH RUBBER MILL OPERATOR, MANDY R 477.9 RHINITIS 08/01/2009 JOSH RUBBER MILL OPERATOR, MANDY R 692.71 SUNBURN 08/01/2009 JOSH RUBBER MILL OPERATORASHOK SpencerMANDY R V25.40 CONTRACEPTIVE SURVEILLANCE UNSPECIFIED 08/01/2009 JOSH RUBBER MILL OPERATORASHOK SpencerMANDY R V72.42 TEST POSITIVE RESULT 08/01/2009 MORENO RUBBER MILL OPERATORASHOK SpencerMANDY R V74.1 SPECIAL SCREENING EXAMINATION FOR PULMONARY TUBERCULOSIS 08/01/2009 PAVON DO, MARGIE K 477.9 RHINITIS 08/01/2009 PAVON DO, MARGIE K 692.71 SUNBURN 08/01/2009 PAVON DO, MARGIE K V25.40 CONTRACEPTIVE SURVEILLANCE UNSPECIFIED 08/01/2009 PAVON DO, MARGIE K V72.42 TEST POSITIVE RESULT 08/01/2009 PAVON DO, MARGIE K V74.1 SPECIAL SCREENING EXAMINATION FOR PULMONARY [...] APRN A 780.50 SLEEP DISTURBANCE, UNSPECIFIED 08/29/2009 TOSHIA SHAFERPRICE RUBBER MILL OPERATORDEEPTI Spencer N 780.50 SLEEP DISTURBANCE, UNSPECIFIED 08/29/2009 ASHOK MORENO APRNRICIA R 780.50 SLEEP DISTURBANCE, UNSPECIFIED 08/29/2009 PVAON DO, MARGIE K 780.50 SLEEP DISTURBANCE, UNSPECIFIED [...] COUNSELING 10/23/2010 V65.45 STD COUNSELING 10/23/2010 V72.31 LEATHER PRODUCTION ARTISAN EXAM, ROUTINE 10/23/2010 V74.5 STD SCREEN 10/23/2010 V25.09 CONTRACEPTIVE COUNSELING 10/23/2010 V65.45 STD COUNSELING 10/23/2010 V72.31 LEATHER PRODUCTION ARTISAN EXAM, ROUTINE 10/23/2010 V74.5 STD SCREEN 10/23/2010 V25.09 CONTRACEPTIVE COUNSELING 10/23/2010 V65.45 STD COUNSELING 10/23/2010 V72.31 LEATHER PRODUCTION ARTISAN EXAM, ROUTINE 10/23/2010 V74.5 STD SCREEN 10/23/2010 V25.09 CONTRACEPTIVE COUNSELING 10/23/2010 V65.45 STD COUNSELING 10/23/2010 V72.31 LEATHER PRODUCTION ARTISAN EXAM, ROUTINE 10/23/2010 V74.5 STD SCREEN 10/23/2010 JB HANEY APRN V25.09 CONTRACEPTIVE COUNSELING 10/23/2010 JB HANEY APRN V65.45 STD COUNSELING 10/23/2010 JB HANEY APRN V72.31 LEATHER PRODUCTION ARTISAN EXAM, ROUTINE 10/23/2010 JB HANEY APRN V74.5 STD SCREEN 10/23/2010 STEPHANIE MEIER APRN A V25.09 CONTRACEPTIVE COUNSELING 10/23/2010 SHANNA MEIER APRNIDI A V65.45 STD COUNSELING 10/23/2010 HARDEEP LIMON STEPHANIE A V72.31 LEATHER PRODUCTION ARTISAN EXAM, ROUTINE 10/23/2010 HARDEEP LIMON STEPHANIE A V74.5 STD SCREEN 10/23/2010 POPE CASHERO RUBBER MILL OPERATOR, DEEPTI N V25.09 CONTRACEPTIVE COUNSELING 10/23/2010 TOSHIA STEINER APRN, DEEPTI N V65.45 STD COUNSELING 10/23/2010 TOSHIA STEINER APRN, DEEPTI N V72.31 LEATHER PRODUCTION ARTISAN EXAM, ROUTINE 10/23/2010 TOSHIA STEINER APRN, DEEPTI N V74.5 STD SCREEN 10/23/2010 JOSH RUBBER MILL OPERATOR, MANDY R V25.09 CONTRACEPTIVE COUNSELING 10/23/2010 JOSH THAKKARN, MANDY R V65.45 STD COUNSELING 10/23/2010 JOSH THAKKARN, MANDY R V72.31 LEATHER PRODUCTION ARTISAN EXAM, ROUTINE 10/23/2010 JOSH THAKKARN, MANDY R V74.5 STD SCREEN 10/23/2010 PAVON DO MARGIE K V25.09 CONTRACEPTIVE COUNSELING 10/23/2010 PAVON DO MARGIE K V65.45 STD COUNSELING 10/23/2010 PAVON DO, MARGIE K V72.31 LEATHER PRODUCTION ARTISAN EXAM, ROUTINE 10/23/2010 PAVON DO MARGIE K [...] N 008.8 GASTROENTERITIS, VIRAL 04/28/2012 TOSHIA STEINER RUBBER MILL OPERATOR, DEEPTI N V06.1 TDAP DX 04/28/2012 JOSH RUBBER MILL OPERATOR, MANDY R 008.8 GASTROENTERITIS, VIRAL 04/28/2012 JOSH RUBBER MILL OPERATOR, MANDY R V06.1 TDAP DX 04/28/2012 PAVON [...] Procedures Code [place] [address] UA LONG DIP 09/21/2012 89462 URINE TEST (IN- HOUSE) 09/21/2012 59989 TRICHOMONAS (IN-HOUSE) 09/21/2012 56966 CULTURE UROGENITAL 09/23/2012 52784 CULTURE URINE 09/23/2012 77338 GC/CHLAM PROBE ([facility]) 09/23/2012 39488 HERPES SIMPLEX CULTURE 09/23/2012 11135 TEST, URINE (IN- HOUSE) 02/23/2013 53382 ROUTINE VENIPUNCTURE 02/24/2013 [id number] HCG QUALITATIVE W/ REFLEX 02/24/2013 98302 LIPID PANEL 02/24/2013 63286 A1C (RML) 02/24/2013 95975 TSH 02/24/2013 65862 INSULIN LEVEL 02/25/2013 22035 TESTOSTERONE TOTAL-WOMEN & CHILDREN 02/27/2013 HERPSM1,2 HERPES SIMPLEX 1 AND 2, IGM, IGG 02/28/2013 18932 OXIMETRY 09/21/2013 37420 TEST, URINE (IN- HOUSE) 05/11/2014 Results Test [...] - 10/31/16 13:09 Estradiol 41.1 pg/mL Thyroid Fillmore Profile - 10/31/16 13:09 TSH 1.030 uIU/mL [...] Status Pt. Type Provider Facility Loc./Unit Complaint [id number] 05/11/2014 13:31:00 05/11/2014 23:59:59 CLS Outpatient MARGIE PAVON DO [id number] 09/21/2013 14:48:00 09/21/2013 23:59:59 CLS Outpatient MANDY MORENO APRN [id number] 06/21/2013 10:22:00 06/21/2013 23:59:59 CLS Outpatient DEEPTI TARANGO APRN [id number] 02/24/2013 08:55:00 02/24/2013 23:59:59 CLS Outpatient STEPHANIE MEIER APRN [id number] 12/18/2012 10:41:00 12/18/2012 23:59:59 CLS Outpatient JB HANEY APRN [id number] 04/28/2012 14:32:00 04/28/2012 23:59:59 CLS Outpatient [id number] 07/28/2011 14:11:00 07/28/2011 23:59:59 CLS Outpatient [id number] 10/04/2012 13:03:00 Document Registration [id number] 09/21/2012 13:42:00 Document Registration [id number] 03/27/2016 14:10:00 Document Registration [id number] 03/28/2016 09:08:00 Document Registration [id number] 11/03/2016 16:07:00 Document Registration [id number] 05/18/2017 10:30:00 05/18/2017 23:59:59 CLS Outpatient [facility] [id number] 03/20/2017 11:40:00 Document Registration [id number] 03/16/2017 11:00:00 Document Registration [id number] 01/15/2017 09:40:00 Document Registration [id number] 10/31/2016 13:00:00 Document Registration [id number] 10/30/2016 15:20:00 Document Registration [id number] 11/02/2016 14:06:00 Document Registration
--- NOTE | 2017-06-07 22:35 | ED EENT ---
History of Present Illness General Chief Complaint: Dental Problems/Pain Stated Complaint: DENTAL/MOUTH PAIN Nursing Triage Note: PT TO ED 5 W/ FAMILY FOR C/O LT SIDE DENTAL PAIN. REPORTS HAS TAKEN TYLENOL/IBUPROFEN W/ NO IMPROVEMENT Source: patient Exam Limitations: no limitations History of Present Illness Date Seen by Provider: Jun 07, 2017 Time Seen by Provider: 22:35 Initial Comments 26-year-old female patient presents to the emergency department with complaints of left lower dental pain for approximately one week. Reports taking Tylenol and ibuprofen earlier today without improvement in symptoms. Timing/Duration: last week Location: dental Prearrival Treatment: over the counter meds Modifying Factors: Worse With Other (worse with palpation) Allergies and Home Medications Allergies Coded Allergies: No Known Drug Allergies (Unverified , 11/25/09) Home Medications Amoxicillin 500 Mg Capsule, 1,000 MG PO BID Prescribed by: ERASMO HUGO on 06/07/172301 Naproxen 500 Mg Tablet, 500 MG PO BID Prescribed by: ERASMO HUGO on 06/07/172301 Patient Home Medication List Home Medication List Reviewed: Yes Review of Systems Constitutional: No chills, No diaphoresis, No dizziness, No fever, No malaise Eyes: No Symptoms Reported Ears: No Symptoms Reported Nose: no symptoms reported Mouth: see HPI Throat: no symptoms reported; denies painful swallowing, denies difficulty with fluids Respiratory: no symptoms reported Cardiovascular: no symptoms reported Skin: no symptoms reported Neurological: No Symptoms Reported All Other Systems Reviewed Negative Unless Noted: Yes (Negative excepted noted.) Past Pkzgxsc-Jjfvxd-Fussqf Hx Patient Social History Alcohol Use: Denies Use Recreational Drug Use: No Smoking Status: Never a Smoker Recent Foreign Travel: No Contact w/Someone Who Travel: No Recent Infectious Disease Expo: No Recent Hopitalizations: No Physical Abuse: No Sexual Abuse: No Mistreated: No Fear: No Past Medical History Surgeries: No Respiratory: No Cardiac: No Neurological: No Genitourinary: No Gastrointestinal: No Musculoskeletal: No Endocrine: No HEENT: No Cancer: No Psychosocial: No Nursing Suicide Risk Score: 0 Integumentary: No Blood Disorders: No Family Medical History Reviewed Nursing Family Hx No Pertinent Family Hx Physical Exam Vital Signs Vital Signs - First Documented 06/07/17 21:54 Temp 96.5 Pulse 78 Resp 16 B/P (MAP) 113/81 (92) Pulse Ox 99 O2 Delivery Room Air General Appearance: WD/WN, no apparent distress Eyes: bilateral eye normal inspection, bilateral eye PERRL, bilateral eye EOMI Ears: bilateral ear auricle normal, bilateral ear canal normal, bilateral ear TM normal Nose: normal inspection Mouth/Throat: pharynx normal, dental tenderness (left lower dental tenderness. Numerous dental caries noted throughout the mouth.); No excessive drooling, No mandibular swelling, No maxillary swelling, No uvula swelling, No voice changes Neck: non-tender, full range of motion, supple, normal inspection Cardiovascular: regular rate, rhythm, no murmur Respiratory: lungs clear, normal breath sounds, no respiratory distress, no accessory muscle use Neurologic/Psychiatric: alert, normal mood/affect, oriented x 3 Skin: normal color, warm/dry Progress/Results/Core Measures My Orders Orders - ERASMO HUGO Lidocaine 2% Viscous 15 Ml (Xylocaine Vi (06/07/17 23:00) Tramadol Tablet (Ultram Tablet) (06/07/17 22:54) Vital Signs/I&O Blood Pressure Mean: 92 Departure Impression Primary Impression: Dental caries Disposition: HOME, SELF-CARE Condition: Improved Departure-Patient Inst. Decision time for Depature: 23:01 Referrals: NO,LOCAL PHYSICIAN (PCP/Family) Primary Care Physician Patient Instructions: Dental Pain (DC) Add. Discharge Instructions: All discharge instructions reviewed with patient and/or family. Voiced understanding. Medications as instructed. Tylenol Extra Strength over-the- counter as directed for pain. You may use an ice pack or heating pad as needed. Drink plenty of fluids. Follow-up with the dentist of your choice for recheck and possible need for tooth extraction. Call for appointment time tomorrow morning. Return to the emergency department for worsened symptoms or any other concerns. Scripts Naproxen (Naprosyn) 500 Mg Tablet 500 MG PO BID, #14 TAB 0 Refills Prov: ERASMO HUGO 06/07/17 Amoxicillin (Amoxicillin) 500 Mg Capsule 1000 MG PO BID, #28 CAP 0 Refills Prov: ERASMO HUGO 06/07/17 ERASMO HUGO Jun 07, 2017 22:35
[2017-06-07] MEDS ORDERED: LIDOCAINE 2% VISCOUS 15 ML UDC PO ONE (23:00)
[2017-06-07] MEDS ORDERED: AMOX500C2 PO (23:02)
[2017-06-07] MEDS ORDERED: NAPR-1071 PO (23:02)
[2017-06-07 23:31] VITALS: BP 0/0
== END 2017-06-07 23:31 | disposition home or self-care (01) ==
LOC: EDUNIT# 21:26 → ER 21:27
DX: K02.9 Dental caries, unspecified (principal)
CPT/HCPCS: 99283

== ENCOUNTER 2018-11-20 23:28 | Emergency (ER) | payer OTHER ==
[~2018-11-20] VITALS: Ht 153 cm; Wt 103.1 kg
[~2018-11-20 23:28] MED LIST changes: +AMOX500C2 PO; +NAPR-1071 PO
[2018-11-20] MEDS ORDERED: CLIN75CA2 PO (23:51)
[2018-11-20] MEDS ORDERED: NF-ADXR10C PO (23:51)
[2018-11-20] MEDS ORDERED: FEXO-14 PO (23:51)
[2018-11-20] MEDS ORDERED: RANI-514 PO (23:51)
[2018-11-20] MEDS ORDERED: SERT25TA PO (23:51)
[2018-11-20] MEDS ORDERED: DEXT10TA9 PO (23:51)
[2018-11-21] MEDS ORDERED: methylPREDNISolone 125 MG (Solu-MEDROL) VIAL IM ONE
[2018-11-21] MEDS ORDERED: hydrOXYzine (VISTARIL/ATARAX) 25 MG capsule/tablet PO ONE
[2018-11-21] MEDS ORDERED: FAMOTIDINE 20 MG (PEPCID) TABLET PO ONE
[2018-11-21] MEDS ORDERED: HYDR-700 PO (00:03)
[2018-11-21] MEDS ORDERED: PRD20T PO (00:03)
--- NOTE | 2018-11-21 00:03 | ED Integumentary General ---
General Chief Complaint: Allergic Reaction Stated Complaint: ALLEGIC REACTION Nursing Triage Note: GENERALIZED ITCHING/RASH X1 DAY, UNKNOWN CAUSE. 50MG BENADRYL PT APPROX. 2130. Source: patient Allergies and Home Medications Allergies Coded Allergies: No Known Drug Allergies (Unverified , 11/25/09) Home Medications Ranitidine HCl 75 Mg Tablet, Unknown Dose PO BID, (Reported) Past Ocnqpsm-Wpsowz-Aqwrmd Hx Patient Social History Alcohol Use: Denies Use Recreational Drug Use: No Smoking Status: Never a Smoker 2nd Hand Smoke Exposure: No Recent Foreign Travel: No Contact w/Someone Who Travel: No Recent Infectious Disease Expo: No Recent Hopitalizations: No Physical Abuse: No Sexual Abuse: No Mistreated: No Fear: No Immunizations Up To Date Tetanus Booster (TDap): Unknown PED Vaccines UTD: Yes Seasonal Allergies Seasonal Allergies: Yes Past Medical History Surgeries: No Respiratory: No Cardiac: No Neurological: No : No Last Menstrual Period: Oct 30, 2018 Genitourinary: No Gastrointestinal: No Musculoskeletal: No Endocrine: No HEENT: No Cancer: No Psychosocial: Yes ADD/ADHD, Anxiety, Depression Integumentary: No Blood Disorders: No Family Medical History No Pertinent Family Hx Physical Exam Vital Signs Vital Signs - First Documented 11/20/18 23:37 Temp 36.6 Pulse 102 Resp 18 B/P (MAP) 114/80 (91) Pulse Ox 98 O2 Delivery Room Air Capillary Refill : Less Than 3 Seconds Progress/Results/Core Measures Results/Orders My Orders Orders - FABIAN GARZA DO Methylprednisolone Sod Succ (Solu-Medrol (11/21/18 00:00) Famotidine Tablet (Pepcid Tablet) (11/21/18 00:00) Hydroxyzine Cap/Tab (Vistaril) (11/21/18 00:00) Vital Signs/I&O 11/20/18 23:37 Temp 36.6 Pulse 102 Resp 18 B/P (MAP) 114/80 (91) Pulse Ox 98 O2 Delivery Room Air Blood Pressure Mean: 91 Departure Impression Primary Impression: Hives Disposition: 01 HOME, SELF-CARE Condition: Stable Departure-Patient Inst. Referrals: MARGIE PAVON DO [facility] [place] Patient Instructions: Hives (DC) Add. Discharge Instructions: LOTS OF CLEAR LIQUIDS TAKE YOUR RANITIDINE 300 MG DAILY TAKE YOUR ARIELLE 1-2 PILLS DAILY FOLLOW UP WITH [facility] ON THURSDAY IF NO BETTER All discharge instructions reviewed with patient and/or family. Voiced understanding. Scripts Hydroxyzine HCl (Hydroxyzine HCl) 25 Mg Tablet 25-50 MG PO Q6H for Itching, #20 TAB Prov: FABIAN GARZA DO 11/21/18 Prednisone (Prednisone) 20 Mg Tab 40 MG PO DAILY, #6 TAB Prov: FABIAN GARZA DO 11/21/18 FABIAN GARZA DO Nov 21, 2018 00:03
[2018-11-21 00:25] VITALS: BP 114/80
== END 2018-11-21 00:29 | disposition home or self-care (01) ==
LOC: EDUNIT# 23:28 → ER 23:29
DX: L50.9 Urticaria, unspecified (principal); F90.9 Attention-deficit hyperactivity disorder, unspecified type; F41.9 Anxiety disorder, unspecified; F32.9 Major depressive disorder, single episode, unspecified
CPT/HCPCS: 96372; 99284

== ENCOUNTER 2021-04-01 00:25 | Emergency (ER) | payer OTHER ==
[~2021-04-01 00:25] MED LIST changes: +CLIN75CA2 PO; +DEXT10TA9 PO; +FEXO-14 PO; +HYDR-700 PO; +NF-ADXR10C PO; +PRD20T PO; +RANI-607 PO; +SERT25TA PO
[2021-04-01 01:00] VITALS: BP 127/90
[2021-04-01] MEDS ORDERED: RX-NAPROXEN (NAPROSYN) 250 MG TAB PPK#4 PO STA (01:55)
[2021-04-01] MEDS ORDERED: LIDO20SO23 MM (01:59)
[2021-04-01] MEDS ORDERED: AMOX-358 PO (01:59)
[2021-04-01] MEDS ORDERED: NAPR500T8 PO (01:59)
--- NOTE | 2021-04-01 01:59 | ED EENT ---
History of Present Illness General Chief Complaint: Dental Problems/Pain Stated Complaint: DENTAL PAIN Nursing Triage Note: Pt arrives via POV from home for c/o lower right dental pain; onset Thursday AM. Pt also reports that today is the last day of her quarantine after positive COVID test. (FABIAN GARZA DO) Allergies and Home Medications Allergies Coded Allergies: No Known Drug Allergies (Unverified , 11/25/09) Patient Home Medication List Amoxicillin/Potassium Clav (Augmentin 875-125 Tablet) 1 Each Tablet, 1 EACH PO BID Prescribed by: FABIAN GARZA on 04/01/21158 Clindamycin HCl (Clindamycin HCl) 75 Mg Capsule, Unknown Dose PO, (Reported) Entered as Reported by: MARIAJOSE CHACON on 11/20/182350 Dextroamphetamine/Amphetamine (Adderall 10 mg Tablet) 10 Mg Tablet, Unknown Dose PO, (Reported) Entered as Reported by: MARIAJOSE CHACON on 11/20/182350 Dextroamphetamine/Amphetamine (Adderall Xr 10 mg Capsule) 10 Mg Cap.er.24h, Unknown Dose PO, (Reported) Entered as Reported by: MARIAJOSE CHACON on 11/20/182350 Fexofenadine HCl (Shavon Allergy) 60 Mg Tablet, Unknown Dose PO, (Reported) Entered as Reported by: MARIAJOSE CHACON on 11/20/182350 Hydroxyzine HCl (Hydroxyzine HCl) 25 Mg Tablet, 25-50 MG PO Q6H Prescribed by: FABIAN GARZA on 11/21/182 Lidocaine HCl (Lidocaine HCl Viscous) 15 Ml Solution, 1-2 ML MM [id number] Prescribed by: FABIAN GARZA on 04/01/21158 Naproxen (Naproxen) 500 Mg Tablet.dr, 500 MG PO BID Prescribed by: FABIAN GARZA on 04/01/21158 Prednisone (Prednisone) 20 Mg Tab, 40 MG PO DAILY Prescribed by: FABIAN GARZA on 11/21/182 Ranitidine HCl (Acid Nurse Supervisor (RANITIDINE)) 75 Mg Tablet, Unknown Dose PO BID, (Reported) Entered as Reported by: MARIAJOSE CHACON on 11/20/182350 Sertraline HCl (Zoloft) 25 Mg Tablet, Unknown Dose PO, (Reported) Entered as Reported by: MARIAJOSE CHACON on 10/12/19 2351 Past Uxffxsc-Vqhxdd-Jycngb Hx Patient Social History Tobacco Use?: No Use of E-Cig and/or Vaping dev: No Substance use?: No Alcohol Use?: No Pt feels they are or have been: No (FABIAN GARZA DO) Immunizations Up To Date Tetanus Booster (TDap): Unknown PED Vaccines UTD: Yes Influenza Vaccine Up-to-Date: Yes; Up-to-Date COVID19 Vaccine School Aide: [employer] (FABIAN GARZA DO) Seasonal Allergies Seasonal Allergies: Yes (FABIAN GARZA DO) Past Medical History Surgeries: No Respiratory: No Cardiac: No Neurological: No Reproductive Disorders: Yes Female Reproductive Disorders: Menstrual Problems Genitourinary: No Gastrointestinal: No Musculoskeletal: No Endocrine: No HEENT: Yes (DENTAL INFECTION) Cancer: No Psychosocial: Yes ADD/ADHD, Anxiety, Depression Integumentary: No Blood Disorders: No (FABIAN GARZA DO) Family Medical History No Pertinent Family Hx (FABIAN GARZA DO) Physical Exam Vital Signs Vital Signs - First Documented 04/01/21 01:00 Temp 35.8 Pulse 83 Resp 18 B/P (MAP) 127/90 (102) Pulse Ox 98 O2 Delivery Room Air (CLAUDIO URRUTIA MD) Height, Weight, BMI Height: 5'2.00" Weight: 180lbs. oz. 81.453197ar; 44.00 BMI Method:Stated (FABIAN GARZA DO) Progress/Results/Core Measures Results/Orders Medications Given in ED Current Medications Medications Dose Ordered Sig/Eliceo Route Start Time Stop Time Status Last Admin Dose Admin Lidocaine HCl 5 ml ONCE ONCE MM 04/01/21 02:00 04/01/21 02:01 DC 04/01/21 02:11 5 ML (CLAUDIO URRUTIA MD) Vital Signs/I&O 04/01/21 01:00 Temp 35.8 Pulse 83 Resp 18 B/P (MAP) 127/90 (102) Pulse Ox 98 O2 Delivery Room Air (CLAUDIO URRUTIA MD) Blood Pressure Mean: 102 Departure Impression Primary Impression: Pain, dental Disposition: 01 HOME, SELF-CARE Condition: Stable Departure-Patient Inst. Decision time for Depature: 01:55 (FABIAN GARZA DO) Referrals: NO,LOCAL PHYSICIAN (PCP/Family) Primary Care Physician Patient Instructions: Dental Pain Add. Discharge Instructions: follow up with your dentist this week for further care All discharge instructions reviewed with patient and/or family. Voiced understanding. Scripts Lidocaine HCl (Lidocaine HCl Viscous) 15 Ml Solution 1-2 ML MM [id number], #120 ML Prov: FABIAN GARZA DO 04/01/21 Naproxen (Naproxen) 500 Mg Tablet.dr 500 MG PO BID, #20 TAB Prov: FABIAN GARZA DO 04/01/21 Amoxicillin/Potassium Clav (Augmentin 875-125 Tablet) 1 Each Tablet 1 EACH PO BID for 10 Days, #20 TAB Prov: FABIAN GARZA DO 04/01/21 FABIAN GARZA DO Apr 01, 2021 01:59 CLAUDIO URRUTIA MD Apr 01, 2021 09:31
[2021-04-01] MEDS ORDERED: AUGMENTIN 875 MG TAB (AMOXICILLIN/CLAVULANATE) PO SCH (02:00)
[2021-04-01] MEDS ORDERED: LIDOCAINE 2% VISCOUS 15 ML UDC MM ONE (02:00)
== END 2021-04-01 02:25 | disposition home or self-care (01) ==
LOC: EDUNIT# 00:25 → ER 00:33
DX: K08.89 Other specified disorders of teeth and supporting structures (principal); F41.9 Anxiety disorder, unspecified; F32.9 Major depressive disorder, single episode, unspecified; Z79.899 Other long term (current) drug therapy
CPT/HCPCS: 99283

== ENCOUNTER → 2021-08-14 | Outpatient (CLI) | payer OTHER ==
[~2021-08-14] MED LIST changes: +AMOX-358 PO; +LIDO20SO23 MM; +NAPR500T8 PO
--- NOTE | 2021-08-14 16:16 | Diagnostic Imaging Report ---
PROCEDURE: Pelvic comp/transvaginal sonogram. TECHNIQUE: Complete transabdominal and transvaginal pelvic ultrasound was performed. In addition, limited pelvic Doppler was performed. INDICATION: Irregular menses. Uterus is anteverted measuring 5.7 x 3.4 x 4.2 cm. Endometrium is 10 mm in thickness. No myometrial mass is detected. Right ovary measures 3.4 x 2.1 x 2.3 cm and the left ovary measures 2.6 x 2.0 x 2.9 cm. Right ovary contains several small follicles. Left ovary contains a 2.3 x 1.3 x 2.3 cm cyst. Both ovaries demonstrate blood flow. There is no free fluid detected. IMPRESSION: 2.3 cm left ovarian cyst. The study is otherwise unremarkable. Dictated by: Dictated on workstation # [id number]
== END ==
LOC: RAD 12:00
PROVIDERS: ATTEND Nurse Practitioner Family
DX: N83.202 Unspecified ovarian cyst, left side (principal)
CPT/HCPCS: 76830; 76856

== ENCOUNTER 2022-08-25 17:30 | Emergency (ER) | payer OTHER ==
[~2022-08-25] VITALS: Ht 157 cm; Wt 113.3 kg
[~2022-08-25 17:30] MED LIST changes: +LIDO15SO3 MM; -LIDO20SO23 MM
[2022-08-25] MEDS ORDERED: NS IV 1000 ML 1,000 ML IV STA (18:00)
[2022-08-25] MEDS ORDERED: morphine INJ 4 MG/ML 1 ML (VIAL/SYRINGE) IVP ONE (18:00)
[2022-08-25] MEDS ORDERED: ONDANSETRON 4 MG/2 ML (SDV) Z0FRAN IVP ONE (18:00)
--- NOTE | 2022-08-25 18:04 | ED Abdominal Pain ---
General Stated Complaint: ABD PAIN Source of Information: Patient Exam Limitations: No Limitations History of Present Illness Date Seen by Provider: Aug 25, 2022 Time Seen by Provider: 18:01 Initial Comments Patient is a 31-year-old female who presents to ED with epigastric right upper quadrant abdominal pain. Pain is described as sharp started between 2 or 3 PM today. She ate lunch 30 minutes prior. Pain initially was around 10 out of 10. This pain has decreased about 5 out of 10 at this time. She had similar type pain yesterday that lasted for a few hours. She did vomit once. She reports nausea at this time. No diarrhea. She was seen at [facility] was recommended come to ED for further evaluation. Denies any alcohol use or excessive NSAID use. Last menstrual cycle a week ago. No vaginal discharge, vaginal bleeding, dysuria, hematuria. No history of previous abdominal surgery. Denies fever, chills, body aches, chest pain, shortness of breath Allergies and Home Medications Allergies Coded Allergies: No Known Drug Allergies (Unverified , 11/25/09) Patient Home Medication List Home Medication List Reviewed: Yes Amoxicillin/Potassium Clav (Augmentin 875-125 Tablet) 1 Each Tablet, 1 EACH PO BID Prescribed by: FABIAN GARZA on 04/01/21158 Clindamycin HCl (Clindamycin HCl) 75 Mg Capsule, Unknown Dose PO, (Reported) Entered as Reported by: MARIAJOSE CHACON on 11/20/182350 Dextroamphetamine/Amphetamine (Adderall 10 mg Tablet) 10 Mg Tablet, Unknown Dose PO, (Reported) Entered as Reported by: MARIAJOSE CHACON on 11/20/182350 Dextroamphetamine/Amphetamine (Adderall Xr 10 mg Capsule) 10 Mg Cap.er.24h, Unknown Dose PO, (Reported) Entered as Reported by: MARIAJOSE CHACON on 11/20/182350 Fexofenadine HCl (Shavon Allergy) 60 Mg Tablet, Unknown Dose PO, (Reported) Entered as Reported by: MARIAJOSE CHACON on 11/20/182350 Hydroxyzine HCl (Hydroxyzine HCl) 25 Mg Tablet, 25-50 MG PO Q6H Prescribed by: FABIAN GARZA on 11/21/18 0003 Lidocaine HCl (Lidocaine HCl Viscous) 15 Ml Solution, 1-2 ML MM [id number] Prescribed by: FABIAN GARZA on 04/01/21158 Naproxen (Naproxen) 500 Mg Tablet.dr, 500 MG PO BID Prescribed by: FABIAN GARZA on 04/01/21 015 Prednisone (Prednisone) 20 Mg Tab, 40 MG PO DAILY Prescribed by: FABIAN GARZA on 11/21/18 0003 Ranitidine HCl (Acid Marine Steam Fitter Helper (RANITIDINE)) 75 Mg Tablet, Unknown Dose PO BID, (Reported) Entered as Reported by: MARIAJOSE CHACON on 11/20/182350 Sertraline HCl (Zoloft) 25 Mg Tablet, Unknown Dose PO, (Reported) Entered as Reported by: MARIAJOSE CHACON on 11/20/182350 Review of Systems Review of Systems Constitutional: No chills, No diaphoresis, No malaise, No weakness EENTM: No Double Vision, No Eye Pain Respiratory: Denies Cough, Denies Orthopnea Cardiovascular: Denies Chest Pain Gastrointestinal: Abdominal Pain; Denies Diarrhea; Nausea, Vomiting Genitourinary: Denies Burning, Denies Discharge Musculoskeletal: No back pain, No joint pain Skin: No change in color, No change in hair/nails All Other Systems Reviewed Negative Unless Noted: Yes Past Eozzakr-Rmvpyv-Fmacgk Hx Immunizations Up To Date Tetanus Booster (TDap): Unknown PED Vaccines UTD: Yes Seasonal Allergies Seasonal Allergies: Yes Past Medical History Surgeries: No Respiratory: No Cardiac: No Neurological: No Reproductive Disorders: Yes Female Reproductive Disorders: Menstrual Problems Genitourinary: No Gastrointestinal: No Musculoskeletal: No Endocrine: No HEENT: Yes (DENTAL INFECTION) Cancer: No Psychosocial: Yes ADD/ADHD, Anxiety, Depression Integumentary: No Blood Disorders: No Family Medical History No Pertinent Family Hx Physical Exam Vital Signs Vital Signs - First Documented 08/25/22 17:54 Temp 36.6 Pulse 79 Resp 16 B/P (MAP) 120/63 (82) Pulse Ox 99 Capillary Refill : Height/Weight/BMI Height: 5'2.00" Weight: 180lbs. oz. [id number]; 44.00 BMI Method:Stated General Appearance: WD/WN, no apparent distress HEENT: PERRL/EOMI, normal ENT inspection, TMs normal, pharynx normal Neck: non-tender, full range of motion, supple Respiratory: chest non-tender, lungs clear, normal breath sounds, no respiratory distress, no accessory muscle use Cardiovascular: regular rate, rhythm, no edema, no gallop, no JVD Gastrointestinal: normal bowel sounds, soft, no organomegaly, no pulsatile mass, tenderness (Epigastric tenderness, right upper quadrant tenderness. Normal bowel sounds throughout.) Extremities: normal range of motion, non-tender, normal inspection, no pedal edema Back: normal inspection, no CVA tenderness, no vertebral tenderness Neurologic/Psychiatric: carburetor rebuilder II-XII nml as tested, no motor/sensory deficits, alert, normal mood/affect, oriented x 3 Skin: normal color, warm/dry Progress/Results/Core Measures Results/Orders Lab Results Laboratory Tests Test 08/25/22 18:21 08/25/22 19:35 Range/Units White Blood Count 12.4 H 4.3-11.0 10^3/uL Red Blood Count 4.70 3.80-5.11 10^6/uL Hemoglobin 12.5 11.5-16.0 g/dL Hematocrit 39 35-52 % Mean Corpuscular Volume 84 80-99 fL Mean Corpuscular Hemoglobin 27 25-34 pg Mean Corpuscular Hemoglobin Concent 32 32-36 g/dL Red Cell Distribution Width 13.4 10.0-14.5 % Platelet Count 357 130-400 10^3/uL Mean Platelet Volume 10.3 9.0-12.2 fL Immature Granulocyte % (Auto) 1 % Neutrophils (%) (Auto) 70 42-75 % Lymphocytes (%) (Auto) 22 12-44 % Monocytes (%) (Auto) 6 0-12 % Eosinophils (%) (Auto) 1 0-10 % Basophils (%) (Auto) 0 0-10 % Neutrophils # (Auto) 8.7 H 1.8-7.8 10^3/uL Lymphocytes # (Auto) 2.7 1.0-4.0 10^3/uL Monocytes # (Auto) 0.8 0.0-1.0 10^3/uL Eosinophils # (Auto) 0.1 0.0-0.3 10^3/uL Basophils # (Auto) 0.1 0.0-0.1 10^3/uL Immature Granulocyte # (Auto) 0.1 0.0-0.1 10^3/uL Sodium Level 139 135-145 MMOL/L Potassium Level 4.2 3.6-5.0 MMOL/L Chloride Level 107 98-107 MMOL/L Carbon Dioxide Level 24 21-32 MMOL/L Anion Gap 8 5-14 MMOL/L Blood Urea Nitrogen 14 7-18 MG/DL Creatinine 0.79 0.60-1.30 MG/DL Estimat Glomerular Filtration Rate 103 BUN/Creatinine Ratio 18 Glucose Level 94 70-105 MG/DL Calcium Level 9.6 8.5-10.1 MG/DL Corrected Calcium 9.4 8.5-10.1 MG/DL Total Bilirubin 0.4 0.1-1.0 MG/DL Aspartate Amino Transf (AST/SGOT) 47 H 5-34 U/L Alanine Aminotransferase (ALT/SGPT) 46 0-55 U/L Alkaline Phosphatase 60 40-136 U/L Total Protein 7.6 6.4-8.2 GM/DL Albumin 4.2 3.2-4.5 GM/DL Lipase 67 8-78 U/L Serum Test, Qualitative NEGATIVE NEGATIVE Urine Color YELLOW Urine Clarity CLEAR Urine pH 7.5 5-9 Urine Specific Donovan 1.010 L 1.016-1.022 Urine Protein NEGATIVE NEGATIVE Urine Glucose (UA) NEGATIVE NEGATIVE Urine Ketones NEGATIVE NEGATIVE Urine Nitrite NEGATIVE NEGATIVE Urine Bilirubin NEGATIVE NEGATIVE Urine Urobilinogen 0.2 < = 1.0 MG/DL Urine Leukocyte Esterase 1+ H NEGATIVE Urine RBC (Auto) NEGATIVE NEGATIVE Urine RBC NONE /HPF Urine WBC 2-5 /HPF Urine Squamous Epithelial Cells 0-2 /HPF Urine Crystals NONE /LPF Urine Bacteria TRACE /HPF Urine Casts NONE /LPF Urine Mucus NEGATIVE /LPF Urine Culture Indicated NO My Orders Orders - AMBER CABRERA PA Ua Culture If Indicated (08/25/22 17:45) Cbc With Automated Diff (08/25/22 18:00) Comprehensive Metabolic Panel (08/25/22 18:00) Lipase (08/25/22 18:00) Ns Iv 1000 Ml (Sodium Chloride 0.9%) (08/25/22 18:00) Ondansetron Injection (Zofran Injectio (08/25/22 18:00) Morphine Injection (Morphine Injection (08/25/22 18:00) Ct Abdomen/Pelvis W (08/25/22 18:20) Iohexol Injection (Omnipaque 350 Mg/Ml 1 (08/25/22 19:00) Ns (Ivpb) (Sodium Chloride 0.9% Ivpb Bag (08/25/22 19:00) Hcg,Qualitative Serum (08/25/22 19:06) Medications Given in ED Current Medications Medications Dose Ordered Sig/Eliceo Route Start Time Stop Time Status Last Admin Dose Admin Iohexol 100 ml ONCE ONCE IV 08/25/22 19:00 08/25/22 19:01 DC 08/25/22 19:52 100 ML Morphine Sulfate 4 mg ONCE ONCE IVP 08/25/22 18:00 08/25/22 18:02 DC 08/25/22 18:30 4 MG Ondansetron HCl 4 mg ONCE ONCE IVP 08/25/22 18:00 08/25/22 18:02 DC 08/25/22 18:30 4 MG Sodium Chloride 100 ml ONCE ONCE IV 08/25/22 19:00 08/25/22 19:01 DC 08/25/22 19:52 80 ML Vital Signs/I&O 08/25/22 17:54 Temp 36.6 Pulse 79 Resp 16 B/P (MAP) 120/63 (82) Pulse Ox 99 Departure Communication (PCP) Reviewed previous ER visits, H&P, lab testing. Differential diagnosis acute cholecystitis, cholelithiasis, gastritis, pancreatitis. Patient is a 31-year-old female who presents the ED with epigastric right upper quadrant pain. Episode yesterday lasted a few hours as well as today after she ate something fatty. 30 minutes after eating started having this pain sharp radi ating to the back. Vomited once. On arrival she has epigastric right upper quadrant tenderness. CBC, CMP, lipase was ordered. White blood count 12.4. Normal bilirubin. AST 47, ALT 46 normal lipase. Negative for . Urinalysis negative for infection. Do not have ultrasound during the evening. IWas able to get a CT abdomen pelvis. CT abdomen pelvis shows cholelithiasis. Question of mild gallbladder wall thickening. No overt bile duct dilation. Mild stenosis of the liver. Patient was given morphine and Zofran. Pain completely resolved. Patient was discussed with Dr. Menard general surgeon. Since patient is pain-free and patient felt comfortable to go home he recommend following up in the office tomorrow. Discussed further treatment. I did discuss with patient may be reasonable to stay n.p.o. over midnight. Recommend avoiding any fatty foods. Discussed with patient that this will likely worsen and she will likely require surgical intervention. She acknowledges. If any worsening pain, fever, chills, vomiting to return back to ED. Impression Primary Impression: Cholelithiasis Disposition: 01 HOME, SELF-CARE Condition: Stable Departure-Patient Inst. Decision time for Depature: 20:23 Referrals: MARIA DEL ROSARIO LOPES MD (PCP/Family) Primary Care Physician SHYANNE MENARD DO Patient Instructions: Gallstones Add. Discharge Instructions: No fatty foods. Recommend follow-up with Dr. Menard tomorrow. May consider staying n.p.o. after midnight. AMBER CABRERA Aug 25, 2022 18:04
[2022-08-25 18:30] LABS: BASOPHILS # (AUTO) 0.1 10^3/uL (0.0-0.1); BASOPHILS % (AUTO) 0 % (0-10); EOSINOPHILS # (AUTO) 0.1 10^3/uL (0.0-0.3); EOSINOPHILS % (AUTO) 1 % (0-10); HEMATOCRIT 39 % (35-52); HEMOGLOBIN 12.5 g/dL (11.5-16.0); LYMPHOCYTES # (AUTO) 2.7 10^3/uL (1.0-4.0); LYMPHOCYTES % (AUTO) 22 % (12-44); MEAN CORPUSCULAR HEMOGLOBIN 27 pg (25-34); MEAN CORPUSCULAR HGB CONC 32 g/dL (32-36); MEAN CORPUSCULAR VOLUME 84 fL (80-99); MEAN PLATELET VOLUME 10.3 fL (9.0-12.2); MONOCYTES # (AUTO) 0.8 10^3/uL (0.0-1.0); MONOCYTES % (AUTO) 6 % (0-12); NEUTROPHILS # (AUTO) 8.7 10^3/uL (1.8-7.8); NEUTROPHILS % (AUTO) 70 % (42-75); PLATELET COUNT 357 10^3/uL (130-400); WHITE BLOOD COUNT 12.4 10^3/uL (4.3-11.0)
[2022-08-25 18:33] LABS: ALBUMIN 4.2 GM/DL (3.2-4.5); POTASSIUM 4.2 MMOL/L (3.6-5.0)
[2022-08-25 18:34] LABS: CALCIUM 9.6 MG/DL (8.5-10.1)
[2022-08-25 18:35] LABS: TOTAL PROTEIN 7.6 GM/DL (6.4-8.2)
[2022-08-25 18:37] LABS: BILIRUBIN,TOTAL 0.4 MG/DL (0.1-1.0)
[2022-08-25 18:39] LABS: CREATININE SERUM 0.79 MG/DL (0.60-1.30)
[2022-08-25] MEDS ORDERED: NS 100 ML (IVPB) BAG IV ONE (19:00)
[2022-08-25] MEDS ORDERED: IOHEXOL 350 MG/ML 100 ML (OMNIPAQUE 350) VIAL IV ONE (19:00)
[2022-08-25 19:43] LABS: BILIRUBIN,URINE NEGATIVE (NEGATIVE); CLARITY,URINE CLEAR; COLOR,URINE YELLOW; GLUCOSE, URINE (UA) NEGATIVE (NEGATIVE); KETONES,URINE NEGATIVE (NEGATIVE); LEUKOCYTE ESTERASE ,URINE 1+ (NEGATIVE); NITRITE,URINE NEGATIVE (NEGATIVE); PH,URINE 7.5 (5-9); PROTEIN,URINE NEGATIVE (NEGATIVE)
[2022-08-25 19:51] LABS: BACTERIA,URINE TRACE /HPF; SQUAMOUS EPITHELIAL CELL,UR 0-2 /HPF
--- NOTE | 2022-08-25 20:16 | Diagnostic Imaging Report ---
PROCEDURE: CT abdomen and pelvis with contrast. TECHNIQUE: Multiple contiguous axial images were obtained through the abdomen and pelvis after administration of intravenous contrast. Auto Exposure Controls were utilized during the CT exam to meet ALARA standards for radiation dose reduction. All CT scans use one or more of the following dose optimizing techniques: automated exposure control, MA and/or KvP adjustment based on patient size and exam type or iterative reconstruction. INDICATION: 31-year-old female, abdominal pain with radiation to the back starting yesterday. Worse after eating. CORRELATION STUDY: None. FINDINGS: LOWER THORAX: Clear. LIVER: Mild steatosis without focal lesion. GALLBLADDER: Small gallstone. Question of some mild gallbladder wall thickening. No bile duct dilatation. SPLEEN: Unremarkable. PANCREAS: Unremarkable. ADRENAL GLANDS: Unremarkable. KIDNEYS: Normal configuration. No calcification or obstruction. ABDOMINAL AORTA: Unremarkable, nonaneurysmal. A few scattered mildly prominent mesenteric lymph nodes particularly in the right lower quadrant. GASTROINTESTINAL TRACT: No gastrointestinal tract obstruction or inflammation. Appendix not well visualized but there is no secondary findings to suggest acute appendicitis. No abdominal ascites or free air. URINARY BLADDER: Unremarkable. REPRODUCTIVE: Uterus and adnexa unremarkable. OSSEOUS STRUCTURES: No acute abnormality. OTHER: None. IMPRESSION: 1. Cholelithiasis. Question mild gallbladder wall thickening. No overt bile duct dilatation. If indicated, right upper quadrant abdominal ultrasound imaging recommended. 2. Mild steatosis of the liver. 3. A few mildly prominent right lower quadrant mesenteric lymph nodes. Dictated by: Dictated on workstation # [id number]
[2022-08-25 20:30] VITALS: BP 120/63
[2022-08-26] MEDS ORDERED: ONDA4TAB11 SL (03:29)
[2022-08-26] MEDS ORDERED: DICY20TA PO (03:29)
== END 2022-08-25 20:30 | disposition home or self-care (01) ==
LOC: EDUNIT# 17:30 → ER 17:32
DX: K80.51 Calculus of bile duct without cholangitis or cholecystitis with obstruction (principal)
CPT/HCPCS: 36415; 74177; 80053; 81000; 83690; 84703; 85025

== ENCOUNTER 2022-08-26 00:54 | Emergency (ER) | payer OTHER ==
[~2022-08-26] VITALS: Ht 157 cm; Wt 113.3 kg
--- NOTE | 2022-08-26 01:38 | ED Abdominal Pain ---
General Chief Complaint: Abdominal/GI Problems Stated Complaint: GALLSTONE PAIN X 2 DAYS Source of Information: Patient Exam Limitations: No Limitations History of Present Illness Date Seen by Provider: Aug 26, 2022 Time Seen by Provider: 01:38 Initial Comments Patient is a 31-year-old female who presents to the emergency department with a chief complaint of epigastric pain radiating to her back onset about midnight. Patient was seen in the emergency department earlier in the evening and diagnosed with cholelithiasis with questionable gallbladder wall thickening. No fevers or chills. She has not vomited this evening. Patient was advised to follow-up with Dr. Menard later today. Angel Luis Marquez PA-C discussed the case with Dr. Menard prior to discharge. Patient states that she has not run any fever. She has not had any diarrhea, black or bloody stools. After discharge she ate some rice without butter. She states the pain feels like she is being both "stabbed and sat on" at the same time Timing/Duration: 1-3 Hours Severity/Quality: Severe, Aching, Sharp, Stabbing Location: Epigastric Radiation: Back Activities at Onset: Other (after eating) Associated Symptoms: Nausea/Vomiting Allergies and Home Medications Allergies Coded Allergies: No Known Drug Allergies (Unverified , 11/25/09) Patient Home Medication List Home Medication List Reviewed: Yes Amoxicillin/Potassium Clav (Augmentin 875-125 Tablet) 1 Each Tablet, 1 EACH PO BID Prescribed by: FABIAN GARZA on 04/01/21 0159 Clindamycin HCl (Clindamycin HCl) 75 Mg Capsule, Unknown Dose PO, (Reported) Entered as Reported by: MARIAJOSE CHACON on 11/20/18 235 Dextroamphetamine/Amphetamine (Adderall 10 mg Tablet) 10 Mg Tablet, Unknown Dose PO, (Reported) Entered as Reported by: MARIAJOSE CHACON on 11/20/18 235 Dextroamphetamine/Amphetamine (Adderall Xr 10 mg Capsule) 10 Mg Cap.er.24h, Unknown Dose PO, (Reported) Entered as Reported by: MARIAJOSE CHACON on 11/20/18 235 Dicyclomine HCl (Dicyclomine HCl) 20 Mg Tablet, 20 MG PO QIDACHS PRN for abdominal cramping Prescribed by: CLAUDIO URRUTIA on 08/26/22 0329 Fexofenadine HCl (Shavon Allergy) 60 Mg Tablet, Unknown Dose PO, (Reported) Entered as Reported by: MARIAJOSE CHACON on 11/20/182350 Hydroxyzine HCl (Hydroxyzine HCl) 25 Mg Tablet, 25-50 MG PO Q6H Prescribed by: FABIAN GARZA on 11/21/182 Lidocaine HCl (Lidocaine HCl Viscous) 15 Ml Solution, 1-2 ML MM [id number] Prescribed by: FABIAN GARZA on 04/01/21158 Naproxen (Naproxen) 500 Mg Tablet.dr, 500 MG PO BID Prescribed by: FABIAN GARZA on 04/01/21158 Ondansetron (Ondansetron Odt) 4 Mg Tab.rapdis, 4 MG SL Q8H PRN for NAUSEA/VOMITING Prescribed by: CLAUDIO URRUTIA on 08/26/22328 Prednisone (Prednisone) 20 Mg Tab, 40 MG PO DAILY Prescribed by: FABIAN GARZA on 11/21/182 Ranitidine HCl (Acid Paleobotanist (RANITIDINE)) 75 Mg Tablet, Unknown Dose PO BID, (Reported) Entered as Reported by: MARIAJOSE CHACON on 11/20/182350 Sertraline HCl (Zoloft) 25 Mg Tablet, Unknown Dose PO, (Reported) Entered as Reported by: MARIAJOSE CHACON on 11/20/182350 Review of Systems Review of Systems Constitutional: see HPI Respiratory: No Symptoms Reported Cardiovascular: No Symptoms Reported Gastrointestinal: Abdominal Pain, Nausea Genitourinary: No Symptoms Reported Musculoskeletal: back pain Past Ipsvicw-Oajtmn-Zguplu Hx Immunizations Up To Date Tetanus Booster (TDap): Unknown PED Vaccines UTD: Yes Seasonal Allergies Seasonal Allergies: Yes Past Medical History Surgery/Hospitalization HX: pcos, adhd, depression Surgeries: No Respiratory: No Cardiac: No Neurological: No Reproductive Disorders: Yes Female Reproductive Disorders: Menstrual Problems Genitourinary: No Gastrointestinal: No Musculoskeletal: No Endocrine: No HEENT: Yes (DENTAL INFECTION) Cancer: No Psychosocial: Yes ADD/ADHD, Anxiety, Depression Integumentary: No Blood Disorders: No Family Medical History No Pertinent Family Hx Physical Exam Vital Signs Vital Signs - First Documented 08/26/22 01:29 Temp 36.4 Pulse 73 Resp 16 B/P (MAP) 135/77 (96) Pulse Ox 97 O2 Delivery Room Air Capillary Refill : Height/Weight/BMI Height: 5'2.00" Weight: 180lbs. oz. 81.823678qr; 45.00 BMI Method:Stated General Appearance: WD/WN, moderate distress (tearful anxious), obese HEENT: PERRL/EOMI Respiratory: lungs clear, normal breath sounds, no respiratory distress, no accessory muscle use Cardiovascular: regular rate, rhythm Gastrointestinal: soft, abnormal bowel sounds (hypoactive), tenderness (epigastric tenderness) Extremities: normal inspection Neurologic/Psychiatric: alert, oriented x 3 Skin: normal color, warm/dry Progress/Results/Core Measures Results/Orders My Orders Orders - CLAUDIO URRUTIA MD Dicyclomine Injection (Bentyl Injection) (08/26/22 01:46) Ondansetron Oral Dissolve Tab (Zofran (08/26/22 02:00) Hydrocodone/Apap 5/325 Tablet (Lortab 5 (08/26/22 02:00) Morphine Injection (Morphine Injection (08/26/22 03:01) Rx-Hydrocodone/Apap 5-325 Mg (Rx-Vicodin (08/26/22 03:30) Medications Given in ED Current Medications Medications Dose Ordered Sig/Eliceo Route Start Time Stop Time Status Last Admin Dose Admin Acetaminophen/ Hydrocodone Bitart 1 ea ONCE ONCE PO 08/26/22 02:00 08/26/22 02:01 DC 08/26/22 02:11 1 EA Ondansetron HCl 4 mg ONCE ONCE PO 08/26/22 02:00 08/26/22 02:01 DC 08/26/22 02:11 4 MG Vital Signs/I&O 08/26/22 01:29 Temp 36.4 Pulse 73 Resp 16 B/P (MAP) 135/77 (96) Pulse Ox 97 O2 Delivery Room Air Progress Progress Note : Time: 03:00 Progress Note Patient states absolutely no relief from pain medications. Sitting at the bedside in the chair crying. I again reviewed records from earlier in the night to look for "red flags"/missed issues. I have not repeated labs as the patient has not been vomiting, is not febrile,no diarrhea and stable VS. Will provide another dose of pain medications. Departure Impression Primary Impression: Biliary colic Disposition: 01 HOME, SELF-CARE Condition: Improved Departure-Patient Inst. Decision time for Depature: 03:30 Referrals: MARIA DEL ROSARIO LOPES MD (PCP/Family) Primary Care Physician Patient Instructions: Gallstones Add. Discharge Instructions: Take the pain medications - Hydrocodone, 1 every 6 hours as needed for severe pain. This medication can make you sleepy and cause constipation, so you should take a stool softener while taking it. Drink lots of water to stay well hydrated. Avoid fatty foods. Dicyclomine 20mg tablets, 1 30 min before each meal, every 6 hours and at bedtime to help with gallbladder pain. Ondansetron 4mg orally disintegrating tablets, 1 tablet every 8 hours as needed for nausea. If you develop a fever, worsening pain. vomiting/inability to hold down me dications - return to the Emergency Department for re-evaluation. Please keep your appointment with Dr Menard later today - call the office for an appointment time.. Scripts Ondansetron (Ondansetron Odt) 4 Mg Tab.rapdis 4 MG SL Q8H PRN for NAUSEA/VOMITING, #15 TAB Prov: CLAUDIO URRUTIA MD 08/26/22 Dicyclomine HCl (Dicyclomine HCl) 20 Mg Tablet 20 MG PO QIDACHS PRN for abdominal cramping, #60 TAB Prov: CLAUDOI URRUTIA MD 08/26/22 Copy Copies To 1: MARIA DEL ROSARIO LOPES MD Copies To 2: SHYANNE MENARD KATHRYN M MD Aug 26, 2022 01:38
[2022-08-26] MEDS ORDERED: DICYCLOMINE 10 MG/ML (BENTYL) 2 ML AMP IM STA (01:46)
[2022-08-26] MEDS ORDERED: ONDANSETRON 4 MG (ZOFRAN) ORAL DISSOLVE TAB PO ONE (02:00)
[2022-08-26] MEDS ORDERED: HYDROcodone/APAP 5 MG/325 MG (LORTAB) TAB PO ONE (02:00)
[2022-08-26] MEDS ORDERED: morphine INJ 10 MG/ML 1ML (SYR OR VIAL) IM STA (03:01)
[2022-08-26] MEDS ORDERED: ONDA4TAB11 SL (03:29)
[2022-08-26] MEDS ORDERED: DICY20TA PO (03:29)
[2022-08-26 03:38] VITALS: BP 107/65
== END 2022-08-26 03:38 | disposition home or self-care (01) ==
LOC: EDUNIT# 00:54 → ER 00:57
DX: K80.50 Calculus of bile duct without cholangitis or cholecystitis without obstruction (principal); E66.9 Obesity, unspecified; Z68.42 Body mass index [BMI] 45.0-49.9, adult
CPT/HCPCS: 99284

== ENCOUNTER 2022-09-03 05:34 | Outpatient (CLI) | payer OTHER ==
[~2022-09-03] VITALS: Ht 157.5 cm; Wt 113.4 kg
[~2022-09-03 05:34] MED LIST changes: +DICY20TA PO; +ONDA4TAB11 SL
[2022-09-03] MEDS ORDERED: SERT-414 PO (13:05)
[2022-09-03] MEDS ORDERED: AMPH15TA PO (13:05)
[2022-09-03] MEDS ORDERED: ERGO1250 PO (13:05)
[2022-09-03] MEDS ORDERED: FLUT9.9S NS (13:05)
[2022-09-03] MEDS ORDERED: NF-ALLE180 PO (13:05)
[2022-09-03] MEDS ORDERED: METF500S7 PO (13:05)
[2022-09-03] MEDS ORDERED: NF-ADDXR30 PO (13:05)
== END 2022-09-03 13:44 ==
LOC: PREOP 05:34
PROVIDERS: ATTEND Surgery
DX: Z01.818 Encounter for other preprocedural examination (principal)

== ENCOUNTER 2022-10-08 05:38 | Outpatient (CLI) | payer OTHER ==
[~2022-10-08] VITALS: Ht 157.5 cm; Wt 109.0 kg
[~2022-10-08 05:38] MED LIST changes: +AMPH15TA PO; +ERGO1250 PO; +FLUT9.9S NS; +METF500S7 PO; +NF-ADDXR30 PO; +NF-ALLE180 PO; +SERT-414 PO
== END 2022-10-09 11:23 | disposition home or self-care (01) ==
LOC: PREOP 05:38
PROVIDERS: ATTEND Surgery
DX: Z01.818 Encounter for other preprocedural examination (principal)

== ENCOUNTER 2022-10-15 07:05 | Day surgery (SDC) | payer OTHER ==
[2022-10-15] VITALS (11 sets, daily range): BP systolic 110–124; BP diastolic 48–81
[~2022-10-15] VITALS: Ht 157.5 cm; Wt 109.0 kg
[2022-10-15] MEDS ORDERED: MIDAZOLAM INJ 2 MG/2 ML VIAL IV ONE (08:00)
[2022-10-15] MEDS ORDERED: ceFAZolin INJECTION 2,000 MG ONE (09:16)
[2022-10-15] MEDS ORDERED: NS (IVPB) 50 ML 50 ML ONE (09:16)
[2022-10-15] MEDS ORDERED: ceFAZolin INJECTION 2,000 MG in NS (IVPB) 50 ML 50 ML IV ONE (09:45)
[2022-10-15] MEDS ORDERED: LACTATED RINGERS 1,000 ML 1,000 ML IV PRN (09:45)
[2022-10-15] MEDS ORDERED: MIDAZOLAM INJ 2 MG/2 ML VIAL ONE ×2 (10:35→10:52)
[2022-10-15] MEDS ORDERED: LIDOCAINE/EPI 1%-1:200,000 (XYLOCAINE) 30 ML VIAL ONE (10:40)
[2022-10-15] MEDS ORDERED: proPOfol INJECTION 200 MG/20 ML VIAL IV ONE (10:52)
[2022-10-15] MEDS ORDERED: LIDOCAINE PF 2% 5 ML VIAL ONE (10:52)
[2022-10-15] MEDS ORDERED: dexAMETHasone INJ 10 MG/ML 1 ML VIAL ONE (10:52)
[2022-10-15] MEDS ORDERED: ONDANSETRON INJECTION 4 MG/2 ML (SDV) ONE (10:52)
[2022-10-15] MEDS ORDERED: GLYCOPYRROLATE INJ 0.2 MG/ML 2 ML VIAL ONE (10:52)
[2022-10-15] MEDS ORDERED: fentaNYL INJECTION 100 MCG/2 ML VIAL ONE (10:52)
[2022-10-15] MEDS ORDERED: NEOSTIGMINE 1 MG/1ML 10 ML VIAL ONE (10:53)
[2022-10-15] MEDS ORDERED: ROCURONIUM 50 MG/5 ML VIAL IV ONE (10:53)
[2022-10-15] MEDS ORDERED: IOHEXOL 300 MG/ML 30 ML (OMNIPAQUE 300) VIAL INJ ONE (11:37)
[2022-10-15] MEDS ORDERED: LIDOCAINE/EPI 1%-1:200,000 (XYLOCAINE) 30 ML VIAL INJ ONE (11:37)
[2022-10-15] MEDS ORDERED: PHENYLEPHRINE 100 MCG/ML 10 ML (ANESTHESIA) SYR ONE (11:43)
[2022-10-15] MEDS ORDERED: KETOROLAC INJ 30 MG/ML VIAL ONE (11:55)
[2022-10-15] MEDS ORDERED: SEVOFLURANE (ULTANE) 15 ML INHAL SOLN ONE (11:58)
--- NOTE | 2022-10-15 12:01 | Progress Note-Post Operative ---
Post-Operative Progess Note Surgeon (s)/Dairy Equipment Mechanic (s) Surgeon SHYANNE MENARD DO Dairy Equipment Mechanic: Stef Pre-Operative Diagnosis CHOLELITHIASIS, CHOLECYSTITIS Post-Operative Diagnosis same Procedure & Operative Findings Date of Procedure 10/15/22 Procedure Performed/Findings PROCEDURE: Laparoscopic cholecystectomy with intraoperative cholangiogram. COMPLICATIONS: None. PROCEDURE: The patient was taken to the operating suite and was prepped and draped in sterile fashion. A surgical pause was performed. Just superior to the umbilicus, a 12 mm incision was made. Dissection was taken down to the fascia, which was then scored and grasped with a Raúl and the abdomen was then entered. An 0 Vicryl suture was placed in a [id number]-[id number] fashion and a Phelps trocar was placed and secured. Pneumoperitoneum was achieved. A 5mm trochar place in the subxyphoid and 2 in the right upper quadrant. The gallbladder was then grasped and taken in the superior direction. A second instrument was used to grasp down at Rousseau's pouch and pull in the infero-lateral direction. The cystic duct, and cystic artery were then dissected out. Clip was placed on the distal portion of the cystic duct which was then partially transected. An arrow catheter was inserted into the duct. The cholangiogram was then performed. No filling defects and contrast made its way into the duodenum. Catheter removed. Clips were placed on proximal portion of the cystic duct and then the duct was then transected. Clips were placed along the proximal and distal portion of the cystic artery which was then transected. Hook cautery was used to dissect the gallbladder from the gallbladder fossa achieving hemostasis. The gallbladder was placed in an Endobag and removed through the 12 mm trocar site. The abdomen was then reinspected. Copious amounts of irrigation were used to irrigate the abdomen and there were no signs of active bleeding. Hemostasis had been achieved. The 12 mm fascial defect was then closed with 0 Vicryl suture that had been placed in a hampso-[id number]-bkdmu fashion. The abdomen was then desufflated, the trocars were removed. The abdomen was then washed and dried. The skin was then closed using 4-0 Monocryl in a subcuticular fashion. The abdomen was washed and dried and Skin Affix was placed over incisions. Patient tolerated the procedure well without any complications and was taken to the recovery room in stable condition. Dr. Finch assisted on this case helping to make incisions, close incisions, identify anatomy and hold anatomy out of the way. Anesthesia Type GET Estimated Blood Loss Estimated blood loss (mL): scant Specimens/Packing Specimens Removed GB and contents SHYANNE MENARD DO Oct 15, 2022 12:01
[2022-10-15] MEDS ORDERED: ACHD5005 PO (12:02)
--- NOTE | 2022-10-15 12:03 | Discharge Inst-Surgical ---
Discharge Inst-Surgical Depart Medication/Instructions New, Converted or Re-Newed RX: Transmitted to Pharmacy Patient Instructions Follow up Appt: Make appointment for 1 week. [phone] Instructions: No lifting greater than 20 pounds. No strenuous activity. May shower in 24 hours, no tub bath or soaking. Use incentive spirometer at home as directed. No Smoking Skin/Wound Care: May remove bandages in am. You need to leave the Dermabond on incision it will fall off on it's own. Symptoms to Report: Appetite Changes, Extremity Discoloration, Numbness/Tingling, Swelling Increased, Bleeding Excessive, Eyesight Changes, Pain Increased, Urine Color Change, Constipation(Persistent), Fever over 101 degree F, Pain/Pressure in chest, Urinating Difficulty, Cough Up/Vomit Blood, Heart Beat Irreg/Pounding, Pain/Pressure in jaw, Cramps in feet or legs, Lightheadedness, Pain/Pressure in shoulder, Diarrhea(Persistent), Memory Changes Suddenly, Questions/Concerns, Weight gain consecutive days, Dizziness/Fainting, Nausea/Vomiting, Shortness of Breath, Weight gain over 2 pounds If questions or concerns contact your physician Or seek help at emergency department. Activity Activity as Tolerated: Yes Activity Instructions: Avoid Stress to Incision Driving Instructions: No Driving/Refer to Dr. Manjarrez Discharge Diet: Avoid Fatty Foods, Low Fat/Low Cholesterol Diet for 24 Hours: No Treynor Foods Diet After 24 Hours: Clear Liquid if Nauseous If Any Problems/Questions/Issu: Contact Your Physician, Go to Emergency Room Skin/Wound Care Infection Signs and Symptoms: Increased Redness, Foul Odor of Wound, Increased Drainage, Skin Itchy or Has a Rash, Increased Swelling, Temperature Above 101 F Wound Care Comment: heating pad to shoulder or neck tonight for pain Bathing Instructions: Shower Stitches/Rocael/Dermabond Dis: SHYANNE Live DO Oct 15, 2022 12:03
[2022-10-15] MEDS ORDERED: HYDROmorphone INJECTION 2 MG/ML VIAL ONE (12:19)
[2022-10-15] MEDS ORDERED: ONDANSETRON INJECTION 4 MG/2 ML (SDV) IVP PRN (12:30)
[2022-10-15] MEDS ORDERED: HYDROmorphone INJECTION 2 MG/ML VIAL IV ONE (12:30)
--- NOTE | 2022-10-15 14:07 | Anesthesia-General Post-Op ---
General Patient Condition Mental Status/LOC: Same as Preop Cardiovascular: Satisfactory Nausea/Vomiting: Absent Respiratory: Satisfactory Pain: Controlled Complications: Absent Post Op Complications Complications None Follow Up Care/Instructions Patient Instructions None needed. Anesthesia/Patient Condition Patient Condition Patient is doing well, no complaints, stable vital signs, no apparent adverse anesthesia problems. No complications reported per nursing. D/C home per [facility] Criteria: Yes ALVINA MOREAU CRNA Oct 15, 2022 14:07
--- NOTE | 2022-10-15 16:53 | Diagnostic Imaging Report ---
INDICATION: Intraoperative cholangiogram during cholecystectomy. COMPARISON: None available. IMPRESSION: Contrast fills the common bile duct, intrahepatic ducts and spills into the duodenum. No filling defects indicate choledocholithiasis. Air Kerma is 4.59 mGy. Please see procedure report for more details. Dictated by: Dictated on workstation # [id number]
== END 2022-10-15 14:50 | disposition home or self-care (01) ==
LOC: SDC 07:05
PROVIDERS: ATTEND Surgery
DX: K80.10 Calculus of gallbladder with chronic cholecystitis without obstruction (principal); E66.01 Morbid (severe) obesity due to excess calories; Z68.41 Body mass index [BMI] 40.0-44.9, adult
CPT/HCPCS: 76000; 84703; 87081